=== PATIENT | male | born 1960 | race Caucasian/White ===

== ENCOUNTER → 2018-09-21 | Outpatient (CLI) | payer OTHER ==
[~2018-09-21] MED LIST: AMOCLA875 PO; AMOX500 PO; ASPI325 PO; B/P MED; Bactrim Ds Tab1 EACH PO; CEPH500 PO; CIPR500 PO; CLIN300 PO; CYCL10 PO; Furosemide20 MG PO; GABA300 PO; HYDACE5 PO; HYDCHL25 PO; HYDR1TAB94 PO; IBUP600 PO; INS70/30I SC; INS70/30PN SC; INSN100I SC; INSR10I SC; INSR10I SS; INSUASPI; LEVEMIR FL100 UNIT/1 SQ; LISI20 PO; METF500C PO; NAPR500 PO; NORT25 PO; Norco 5-325 Ta1 EACH PO; OLME20 PO; OMEP20ER PO; ONDA4ODT MM; OXYACE5T PO; POTCHL10ER PO; SACC250C; SIMV10 PO; SIMV40 PO; SULTRIDS PO; Tylenol325 MG PO
== END | disposition home or self-care (01) ==
LOC: LAB 17:32 → LAB SHORT 17:32
DX: E11.42 Type 2 diabetes mellitus with diabetic polyneuropathy (principal); E11.621 Type 2 diabetes mellitus with foot ulcer; L97.522 Non-pressure chronic ulcer of other part of left foot with fat layer exposed; L03.032 Cellulitis of left toe; M86.172 Other acute osteomyelitis, left ankle and foot; R20.0 Anesthesia of skin
CPT/HCPCS: 87070; 87077; 87147; 87186; 87205; 88305; 88311

== ENCOUNTER 2019-05-20 02:43 | Day surgery (SDC) | payer OTHER ==
[~2019-05-20 02:43] MED LIST changes: +CLON.1 PO; +CYAN500 PO
== END 2019-05-20 15:35 | disposition home or self-care (01) ==
LOC: ATC 02:43
DX: E11.621 Type 2 diabetes mellitus with foot ulcer (principal); L08.9 Local infection of the skin and subcutaneous tissue, unspecified; I10 Essential (primary) hypertension; E11.40 Type 2 diabetes mellitus with diabetic neuropathy, unspecified; Z79.4 Long term (current) use of insulin; Z79.899 Other long term (current) drug therapy; Z79.2 Long term (current) use of antibiotics
CPT/HCPCS: 96365; 96366; J3370; J7050

== ENCOUNTER 2019-05-21 11:11 | Inpatient (IN) | payer OTHER ==
[~2019-05-21] VITALS: Ht 190.5 cm; Wt 136.1 kg
[2019-05-21 12:21] LABS: BASOPHILS ABSOLUTE AUTO 0.05 K/mm3 (0.00-0.23); BASOPHILS PERCENT AUTO 1 % (0-2); EOSINOPHILS ABSOLUTE AUTO 0.36 K/mm3 (0.00-0.68); EOSINOPHILS PERCENT AUTO 4 % (0-6); Hematocrit 32.8 % (37.0-53.0); Hemoglobin 10.8 g/dL (13.5-17.5); IMMATURE GRAN ABSOLUTE AUTO 0.04 K/mm3 (0.00-0.10); IMMATURE GRAN PERCENT AUTO 0 % (0-1); LYMPHOCYTES ABSOLUTE AUTO 1.55 K/mm3 (0.84-5.20); LYMPHOCYTES PERCENT AUTO 17 % (21-46); MONOCYTES ABSOLUTE AUTO 0.81 K/mm3 (0.16-1.47); MONOCYTES PERCENT AUTO 9 % (4-13); Mean Corpuscular HGB 29.1 pg (26.0-34.0); Mean Corpuscular HGB Conc 32.9 g/dL (31.5-36.5); Mean Corpuscular Volume 88 fL (80-100); Mean Platelet Volume 10.3 fL (9.1-12.4); NEUTROPHILS ABSOLUTE AUTO 6.31 K/mm3 (1.96-9.15); NEUTROPHILS PERCENT AUTO 69 % (41-73); Platelet Count 369 K/mm3 (150-400); RDW Coefficient Variation 12.5 % (11.7-14.2); RDW Standard Deviation 40.6 fL (35.1-46.3); Red Blood Cell Count 3.71 M/mm3 (4.30-5.90); White Blood Cell Count 9.12 K/mm3 (4.00-11.30)
[2019-05-21 12:38] LABS: International Normalized Ratio 0.99; Prothrombin Time Results 10.6 Sec (9.7-11.5)
[2019-05-21 12:39] LABS: Alanine Aminotransfer (ALT/SGP 13 U/L (12-78); Albumin, Blood 2.7 g/dL (3.4-5.0); Albumin/Globulin Ratio 0.7 (0.8-1.8); Alk Phos 91 U/L (50-136); Anion Gap 5 mmol/L (6-16); Aspartate Aminotrans (AST/SGOT 8 U/L (12-37); Bilirubin, Total 0.4 mg/dL (0.1-1.0); Blood Urea Nitrogen 28 mg/dL (8-24); Bun/Creatinine Ratio 27.5 (12.0-20.0); CO2, Blood 28 mmol/L (21-32); Calcium, Blood 9.3 mg/dL (8.5-10.1); Chloride, Blood 106 mmol/L (98-108); Creatinine, Blood 1.02 mg/dL (0.60-1.20); Globulin, Blood 3.9 g/dL (2.2-4.0); Glomerular Filtration Rate >60 (60-); Glucose, Blood 208 mg/dL (70-99); Potassium, Blood 3.9 mmol/L (3.5-5.5); Sodium, Blood 139 mmol/L (136-145); Total Protein, Blood 6.6 g/dL (6.4-8.2)
--- NOTE | 2019-05-21 16:42 | NUR ---
05/21/19 1642 Viviane Silver PT ON SCHEDULED ANTIBIOTICS, PAS STOCKING NOT USED ON LEFT CALF PER DOC, ANESTHESIA OK'D
--- NOTE | 2019-05-21 19:58 | NUR ---
SHIFT SUMMARY PT A&OX4, VSS, S/P R FOOT I&D W/WOUND VAC. DENIES PAIN. DENIES N&V. MARCELL PO. VOIDING WELL, USES URINAL. FAMILY AT BEDSIDE. REPORT GIVEN TO YONG COOK.
[2019-05-22 04:12] LABS: BASOPHILS ABSOLUTE AUTO 0.03 K/mm3 (0.00-0.23); BASOPHILS PERCENT AUTO 0 % (0-2); EOSINOPHILS ABSOLUTE AUTO 0.01 K/mm3 (0.00-0.68); EOSINOPHILS PERCENT AUTO 0 % (0-6); Hematocrit 32.7 % (37.0-53.0); Hemoglobin 10.4 g/dL (13.5-17.5); IMMATURE GRAN ABSOLUTE AUTO 0.05 K/mm3 (0.00-0.10); IMMATURE GRAN PERCENT AUTO 1 % (0-1); LYMPHOCYTES ABSOLUTE AUTO 0.91 K/mm3 (0.84-5.20); LYMPHOCYTES PERCENT AUTO 12 % (21-46); MONOCYTES PERCENT AUTO 8 % (4-13); Mean Corpuscular HGB 28.7 pg (26.0-34.0); Mean Corpuscular HGB Conc 31.8 g/dL (31.5-36.5); Mean Corpuscular Volume 90 fL (80-100); Mean Platelet Volume 10.4 fL (9.1-12.4); NEUTROPHILS ABSOLUTE AUTO 6.09 K/mm3 (1.96-9.15); NEUTROPHILS PERCENT AUTO 79 % (41-73); Platelet Count 359 K/mm3 (150-400); RDW Coefficient Variation 12.5 % (11.7-14.2); RDW Standard Deviation 41.5 fL (35.1-46.3); Red Blood Cell Count 3.62 M/mm3 (4.30-5.90); White Blood Cell Count 7.69 K/mm3 (4.00-11.30)
[2019-05-22 04:27] LABS: Anion Gap 1 mmol/L (6-16); Blood Urea Nitrogen 29 mg/dL (8-24); Bun/Creatinine Ratio 25.7 (12.0-20.0); CO2, Blood 32 mmol/L (21-32); Calcium, Blood 8.8 mg/dL (8.5-10.1); Chloride, Blood 108 mmol/L (98-108); Creatinine, Blood 1.13 mg/dL (0.60-1.20); Glomerular Filtration Rate >60 (60-); Glucose, Blood 295 mg/dL (70-99); Potassium, Blood 4.6 mmol/L (3.5-5.5); Sodium, Blood 141 mmol/L (136-145)
--- NOTE | 2019-05-22 07:45 | NUR ---
SHIFT SUMMARY: PT POD #1 FOR I&D TO RLE. MARINA WRAP CDI WITH WOUND VAC IN PLACE. DRAINING SS FLUID. PT NWB TO RLE. PT DENIES PAIN T/O SHIFT. FLUIDS INFUSING THROUGHOUT NIGHT. PT MARCELL PO AND DENIES N/V.
--- NOTE | 2019-05-22 12:10 | NUR ---
pt in bed eating lunch worked with physical therapy earlier stated his toilet was having problems will call someone to look at it for him
--- NOTE | 2019-05-22 12:25 | NUR ---
SHIFT SUMMARY PT IS A/O X 4 AND HAS NO C/O PAIN. WOUND VAC REMAINS C.D.I. TO RIGHT FOOT. PT WORKED WITH THE PT IN HIS ROOM AND HE WAS ABLE TO WALK WITH THE FWW AND X 1 ASSIST WITH HEEL TOUCH WEIGHT BEARING STATUS. PT REPORTS THAT HE LIVES ON THE SECOND FLOOR OF HIS [place] AND WILL NEED TO WORK WITH THERAPY TO REGAIN HIS STRENGTH TO BE ABLE TO GET INTO HIS HOME UPON DC. IV ABO INFUSED WITH NO ISSUE OBSERVED. CBGS COVERED WITH SLIDING SCALE ORDERED, PT HAS NO S/S OF HYPER/HYPO GLYCEMIA. PT IS ABLE TO MAKE HIS NEEDS KNOWN AND CALLS FOR HELP APPROPRIATELY WHEN NEEDED. CALL LIGHT IS IN REACH. REPORT GIVEN TO ONCOMING NURSE.
--- NOTE | 2019-05-22 15:23 | NUR ---
pt awake voided stated at home he sleeps in small bursts night and day also stated at home he only take his meds once a day clonidine 0.3 mg is ordered tid
--- NOTE | 2019-05-22 16:05 | NUR ---
OOB WITH FWW TO BATHROOM PWB ON HEEL TO HAVE BM BACK TO BED MEDS GIVEN SCHED
--- NOTE | 2019-05-22 17:45 | NUR ---
pt eating dinner meds given as sched
--- NOTE | 2019-05-23 06:39 | NUR ---
POD 2 S/P I&D OF R FOOT. PT VSS T/O NIGHT. PT DENIED PAIN. WOUND VAC INTACT SRNG SMALL AMT SS DRNG; GOOD SEAL AND SX MAINTAINED T/O NIGHT. PT UP OOB W/FWW+SBA, MAINTAINING WB PRECAUTIONS. PT MARCELL REG PO, NO C/O N/V. PT USING CALL LIGHT FOR ASSISTANCE, WILL CONT TO MONITOR UNTIL REP GIVEN TO ONCOMING RN.
--- NOTE | 2019-05-23 07:30 | NUR ---
ASSUMED CARE: PT RESTING IN BED, RIGHT FOOT ELEVATED, WRAPPED IN MARINA WRAP WITH WOUND VAC DRAINING. SCANT DRAINAGE NOTED IN WOUND VAC. DENIES PAINS OR OTHER CONCERNS AT THIS TIME.
--- NOTE | 2019-05-23 18:59 | NUR ---
SHIFT SUMMARY: PT UP IN CHAIR A FEW TIMES THIS SHIFT. DENIED NEEDS OR CONCERNS. PLAN FOR DC TO SNF WHEN SS AVAILABLE. NO FURTHER INPUT PER PODIATRY AT THIS TIME.
--- NOTE | 2019-05-24 04:56 | NUR ---
POD 3 S/P I&D OF R FOOT. PT DENIED PAIN T/O NIGHT. WOUND VAC INTACT [facility]. PT UP W/FWW+SBA, IS MAINTAINING HEEL TOUCH WBS. IV ABC CONT PER ORDERS. PLAN TO D/C TO SNF. PT USING CALL LIGHT FOR ASSISTANCE, WILL CONT TO MONITOR UNTIL REP GIVEN TO ONCOMING RN.
--- NOTE | 2019-05-24 16:30 | NUR ---
ATTEMPT TO CALL REPORT TO LUCIA
--- NOTE | 2019-05-24 17:04 | NUR ---
ATTEMPT TO CALL REPORT TO LUCIA. PT ESCORTED OUT VIA W/C W/ TRANSPORT.
== END 2019-05-24 17:04 | disposition home or self-care (01) | DRG 623 ==
LOC: ER 11:11 → SURS 14:46
PROVIDERS: Emergency Medicine; Podiatrist Foot & Ankle Surgery; ADMIT Internal Medicine
PROC: 0KBV0ZZ Excision of Right Foot Muscle, Open Approach (ICD-10-PCS; principal; 2019-05-21 15:00)
DX: E11.69 Type 2 diabetes mellitus with other specified complication (principal); M86.171 Other acute osteomyelitis, right ankle and foot; E11.52 Type 2 diabetes mellitus with diabetic peripheral angiopathy with gangrene; I96 Gangrene, not elsewhere classified; E11.621 Type 2 diabetes mellitus with foot ulcer; L97.513 Non-pressure chronic ulcer of other part of right foot with necrosis of muscle; E11.21 Type 2 diabetes mellitus with diabetic nephropathy; M54.9 Dorsalgia, unspecified; Z89.429 Acquired absence of other toe(s), unspecified side
CPT/HCPCS: 36415; 73620; 80048; 80053; 82947; 83036; 83605; 85025; 85610; 85730; 87040; 87071; 87075; 87205; 88305; 93005; 93010; 96374; 97110; 97116; 97162; 99285-25; A9270-GY; J0690; J1100; J1170; J1650; J2250; J2405; J2704; J2765; J3010; J7030; J7050; J7120

== ENCOUNTER 2019-05-22 01:39 | Day surgery (SDC) | payer OTHER | END 2019-05-22 22:38 | disposition home or self-care (01) | LOC: ATC 01:39 | DX: E11.621 Type 2 diabetes mellitus with foot ulcer (principal); L97.519 Non-pressure chronic ulcer of other part of right foot with unspecified severity; B95.61 Methicillin susceptible Staphylococcus aureus infection as the cause of diseases classified elsewhere; E11.40 Type 2 diabetes mellitus with diabetic neuropathy, unspecified; I10 Essential (primary) hypertension; Z79.4 Long term (current) use of insulin; Z79.899 Other long term (current) drug therapy; Z89.421 Acquired absence of other right toe(s) ==

== ENCOUNTER 2019-05-23 00:40 | Day surgery (SDC) | payer OTHER | END 2019-05-23 22:44 | disposition home or self-care (01) | LOC: ATC 00:40 | DX: E11.621 Type 2 diabetes mellitus with foot ulcer (principal); L97.519 Non-pressure chronic ulcer of other part of right foot with unspecified severity; B95.61 Methicillin susceptible Staphylococcus aureus infection as the cause of diseases classified elsewhere; E11.40 Type 2 diabetes mellitus with diabetic neuropathy, unspecified; I10 Essential (primary) hypertension; Z79.4 Long term (current) use of insulin; Z79.899 Other long term (current) drug therapy; Z89.421 Acquired absence of other right toe(s) ==

== ENCOUNTER 2019-05-24 00:14 | Day surgery (SDC) | payer OTHER | END 2019-05-24 23:17 | disposition home or self-care (01) | LOC: ATC 00:14 | DX: E11.621 Type 2 diabetes mellitus with foot ulcer (principal); L97.419 Non-pressure chronic ulcer of right heel and midfoot with unspecified severity; I10 Essential (primary) hypertension; E11.40 Type 2 diabetes mellitus with diabetic neuropathy, unspecified; B95.62 Methicillin resistant Staphylococcus aureus infection as the cause of diseases classified elsewhere; Z79.4 Long term (current) use of insulin; Z79.899 Other long term (current) drug therapy ==

== ENCOUNTER → 2019-06-16 | Outpatient (CLI) | payer OTHER ==
[2019-06-16 12:17] LABS: Hematocrit 36.8 % (37.0-53.0); Hemoglobin 11.9 g/dL (13.5-17.5); Mean Corpuscular HGB 28.7 pg (26.0-34.0); Mean Corpuscular HGB Conc 32.3 g/dL (31.5-36.5); Mean Corpuscular Volume 89 fL (80-100); Platelet Count 339 K/mm3 (150-400); RDW Coefficient Variation 13.7 % (11.7-14.2); Red Blood Cell Count 4.15 M/mm3 (4.30-5.90); White Blood Cell Count 9.21 K/mm3 (4.00-11.30)
[2019-06-16 12:28] LABS: Alanine Aminotransfer (ALT/SGP 13 U/L (12-78); Albumin, Blood 3.4 g/dL (3.4-5.0); Albumin/Globulin Ratio 0.8 (0.8-1.8); Alk Phos 115 U/L (50-136); Anion Gap 5 mmol/L (6-16); Aspartate Aminotrans (AST/SGOT 11 U/L (12-37); Bilirubin, Total 0.2 mg/dL (0.1-1.0); Blood Urea Nitrogen 22 mg/dL (8-24); Bun/Creatinine Ratio 22.8 (12.0-20.0); CO2, Blood 29 mmol/L (21-32); Calcium, Blood 9.3 mg/dL (8.5-10.1); Chloride, Blood 107 mmol/L (98-108); Creatinine, Blood 0.97 mg/dL (0.60-1.20); Globulin, Blood 4.1 g/dL (2.2-4.0); Glomerular Filtration Rate >60 (60-); Glucose, Blood 151 mg/dL (70-99); Sodium, Blood 141 mmol/L (136-145); Total Protein, Blood 7.5 g/dL (6.4-8.2)
== END | disposition home or self-care (01) ==
LOC: LAB SHORT 12:01 → LAB 12:01
PROVIDERS: Internal Medicine Nephrology
DX: E11.40 Type 2 diabetes mellitus with diabetic neuropathy, unspecified (principal); M86.071 Acute hematogenous osteomyelitis, right ankle and foot; B95.62 Methicillin resistant Staphylococcus aureus infection as the cause of diseases classified elsewhere; I10 Essential (primary) hypertension
CPT/HCPCS: 80053; 85027; 85651; 86140

== ENCOUNTER 2019-06-22 00:16 | Day surgery (SDC) | payer OTHER | END 2019-06-22 22:53 | disposition home or self-care (01) | LOC: WOUND 00:16 | DX: T81.89XA Other complications of procedures, not elsewhere classified, initial encounter (principal); E11.621 Type 2 diabetes mellitus with foot ulcer; L97.516 Non-pressure chronic ulcer of other part of right foot with bone involvement without evidence of necrosis; E11.51 Type 2 diabetes mellitus with diabetic peripheral angiopathy without gangrene; I10 Essential (primary) hypertension; E11.40 Type 2 diabetes mellitus with diabetic neuropathy, unspecified; F17.210 Nicotine dependence, cigarettes, uncomplicated; Z89.431 Acquired absence of right foot; Y83.8 Other surgical procedures as the cause of abnormal reaction of the patient, or of later complication, without mention of misadventure at the time of the procedure | CPT/HCPCS: 87071; 87075; 87076; 87077; 87185; 87186; 87205; 88305; 88311; G0463 ==

== ENCOUNTER 2019-07-01 00:59 | Day surgery (SDC) | payer OTHER ==
[~2019-07-01 00:59] MED LIST changes: -CLON.1 PO; -Furosemide20 MG PO; -METF500C PO; -POTCHL10ER PO
== END 2019-07-01 22:46 | disposition home or self-care (01) ==
LOC: WOUND 00:59
DX: E11.621 Type 2 diabetes mellitus with foot ulcer (principal); L97.513 Non-pressure chronic ulcer of other part of right foot with necrosis of muscle; I10 Essential (primary) hypertension; E11.51 Type 2 diabetes mellitus with diabetic peripheral angiopathy without gangrene; E11.40 Type 2 diabetes mellitus with diabetic neuropathy, unspecified; Z79.4 Long term (current) use of insulin; Z79.899 Other long term (current) drug therapy; Z86.73 Personal history of transient ischemic attack (TIA), and cerebral infarction without residual deficits; Z89.431 Acquired absence of right foot
CPT/HCPCS: 87071; 87075; 87076; 87185; 87205; 88305; 88311

== ENCOUNTER 2019-07-05 14:54 | Inpatient (IN) | payer OTHER ==
[~2019-07-05] VITALS: Ht 190.5 cm; Wt 143.5 kg
[2019-07-05 15:41] LABS: BASOPHILS ABSOLUTE AUTO 0.04 K/mm3 (0.00-0.23); BASOPHILS PERCENT AUTO 0 % (0-2); EOSINOPHILS ABSOLUTE AUTO 0.19 K/mm3 (0.00-0.68); EOSINOPHILS PERCENT AUTO 2 % (0-6); Hematocrit 31.1 % (37.0-53.0); Hemoglobin 9.9 g/dL (13.5-17.5); IMMATURE GRAN ABSOLUTE AUTO 0.04 K/mm3 (0.00-0.10); IMMATURE GRAN PERCENT AUTO 0 % (0-1); LYMPHOCYTES ABSOLUTE AUTO 1.29 K/mm3 (0.84-5.20); LYMPHOCYTES PERCENT AUTO 12 % (21-46); MONOCYTES ABSOLUTE AUTO 1.11 K/mm3 (0.16-1.47); MONOCYTES PERCENT AUTO 10 % (4-13); Mean Corpuscular HGB 28.2 pg (26.0-34.0); Mean Corpuscular HGB Conc 31.8 g/dL (31.5-36.5); Mean Corpuscular Volume 89 fL (80-100); Mean Platelet Volume 10.4 fL (9.1-12.4); NEUTROPHILS ABSOLUTE AUTO 8.08 K/mm3 (1.96-9.15); NEUTROPHILS PERCENT AUTO 75 % (41-73); Platelet Count 372 K/mm3 (150-400); RDW Coefficient Variation 13.5 % (11.7-14.2); RDW Standard Deviation 44.1 fL (35.1-46.3); Red Blood Cell Count 3.51 M/mm3 (4.30-5.90); White Blood Cell Count 10.75 K/mm3 (4.00-11.30)
[2019-07-05 16:04] LABS: Alanine Aminotransfer (ALT/SGP 11 U/L (12-78); Albumin, Blood 2.9 g/dL (3.4-5.0); Albumin/Globulin Ratio 0.7 (0.8-1.8); Alk Phos 107 U/L (50-136); Anion Gap 5 mmol/L (6-16); Aspartate Aminotrans (AST/SGOT 7 U/L (12-37); Bilirubin, Total 0.2 mg/dL (0.1-1.0); Blood Urea Nitrogen 24 mg/dL (8-24); Bun/Creatinine Ratio 20.9 (12.0-20.0); CO2, Blood 28 mmol/L (21-32); Calcium, Blood 8.8 mg/dL (8.5-10.1); Chloride, Blood 107 mmol/L (98-108); Creatinine, Blood 1.15 mg/dL (0.60-1.20); Globulin, Blood 3.9 g/dL (2.2-4.0); Glomerular Filtration Rate >60 (60-); Glucose, Blood 116 mg/dL (70-99); Potassium, Blood 4.3 mmol/L (3.5-5.5); Sodium, Blood 140 mmol/L (136-145); Total Protein, Blood 6.8 g/dL (6.4-8.2)
[2019-07-05] MEDS ORDERED: BASAGLAR K100 UNIT/2 SC (17:29)
[2019-07-05] MEDS ORDERED: Furosemide20 MG PO (17:29)
[2019-07-05] MEDS ORDERED: CLON.3 PO (17:29)
[2019-07-05] MEDS ORDERED: LISI20 PO (17:30)
[2019-07-05] MEDS ORDERED: NOVOLOG FL100 UNIT/1 SC (18:01)
[2019-07-05] MEDS ORDERED: POTCHL10ER PO (18:04)
[2019-07-05] MEDS ORDERED: Metformin HCl1000 MG PO (18:04)
[2019-07-05] MEDS ORDERED: Aspir 8181 MG PO (18:05)
--- NOTE | 2019-07-05 18:52 | NUR ---
PT TO ROOM 210 FROM ER. PT A/O. PT IN BED. PT REPORTS AWARE OF CALL LIGHT AND PHONE. GIVING REPORT TO TAMI COOK.
[2019-07-05] MEDS ORDERED: GLUC500 PO (20:08)
[2019-07-06 04:48] LABS: BASOPHILS ABSOLUTE AUTO 0.04 K/mm3 (0.00-0.23); BASOPHILS PERCENT AUTO 1 % (0-2); EOSINOPHILS ABSOLUTE AUTO 0.25 K/mm3 (0.00-0.68); EOSINOPHILS PERCENT AUTO 3 % (0-6); Hematocrit 28.2 % (37.0-53.0); IMMATURE GRAN ABSOLUTE AUTO 0.03 K/mm3 (0.00-0.10); IMMATURE GRAN PERCENT AUTO 0 % (0-1); LYMPHOCYTES ABSOLUTE AUTO 1.53 K/mm3 (0.84-5.20); LYMPHOCYTES PERCENT AUTO 20 % (21-46); MONOCYTES ABSOLUTE AUTO 0.83 K/mm3 (0.16-1.47); MONOCYTES PERCENT AUTO 11 % (4-13); Mean Corpuscular HGB 28.2 pg (26.0-34.0); Mean Corpuscular HGB Conc 31.9 g/dL (31.5-36.5); Mean Corpuscular Volume 88 fL (80-100); Mean Platelet Volume 10.3 fL (9.1-12.4); NEUTROPHILS ABSOLUTE AUTO 5.01 K/mm3 (1.96-9.15); NEUTROPHILS PERCENT AUTO 65 % (41-73); Platelet Count 282 K/mm3 (150-400); RDW Coefficient Variation 13.5 % (11.7-14.2); RDW Standard Deviation 44.1 fL (35.1-46.3); Red Blood Cell Count 3.19 M/mm3 (4.30-5.90); White Blood Cell Count 7.69 K/mm3 (4.00-11.30)
[2019-07-06 05:07] LABS: Anion Gap 5 mmol/L (6-16); Blood Urea Nitrogen 21 mg/dL (8-24); CO2, Blood 29 mmol/L (21-32); Calcium, Blood 8.6 mg/dL (8.5-10.1); Chloride, Blood 107 mmol/L (98-108); Creatinine, Blood 1.05 mg/dL (0.60-1.20); Glomerular Filtration Rate >60 (60-); Glucose, Blood 147 mg/dL (70-99); Sodium, Blood 141 mmol/L (136-145)
--- NOTE | 2019-07-06 05:33 | NUR ---
SHIFT SUMMARY: JONATHAN IS A&O X4. HE IS NWB TO THE RLE WHICH HAS AN OPEN WOUND AND IS BANDAGED WITH A NONADHESIVE PAD, KERLIX AND MARINA WRAP. VSS. NO ACUTE EVENTS OVERNIGHT. HE RESTED WITH HIS EYES CLOSED AND EVEN, UNLABORED RESPIRATONS FOR THE BETTER PART OF THE NIGHT. HE WAS MADE NPO AT MIDNIGHT, TOLERATED PO INTAKE WELL UNTIL THEN, DENIES ANY N/V. HE IS USING THE URINAL WITHOUT DIFFICULTY. HE IS ABLE TO MAKE HIS NEEDS KNOWN. PICC TO RUE PATENT. HE IS PLEASANT AND COOPERATIVE WITH CARE. HE IS LYING IN BED WITH HIS CALL LIGHT IN REACH. WILL REPORT TO DAY SHIFT RN.
--- NOTE | 2019-07-06 09:32 | NUR ---
PT TO DAY SURGERY VIA JETT
--- NOTE | 2019-07-06 09:37 | NUR ---
INTO SDS WITH RN. ADMISSION TO UNIT STARTED
--- NOTE | 2019-07-06 11:28 | NUR ---
UP TO BATHROOM PATIENT REPORTS URINATED AND HAD A BOWELL MOVEMENT.
--- NOTE | 2019-07-06 13:45 | NUR ---
POST OP PT ARRIVES POST OP. ORIENTED, PLEASANT. WOUND VAC IN PLACE. ELEVATED ON PILLOW.
[2019-07-07 05:00] LABS: BASOPHILS ABSOLUTE AUTO 0.02 K/mm3 (0.00-0.23); BASOPHILS PERCENT AUTO 0 % (0-2); EOSINOPHILS PERCENT AUTO 3 % (0-6); Hematocrit 27.3 % (37.0-53.0); Hemoglobin 8.7 g/dL (13.5-17.5); IMMATURE GRAN ABSOLUTE AUTO 0.03 K/mm3 (0.00-0.10); IMMATURE GRAN PERCENT AUTO 0 % (0-1); LYMPHOCYTES ABSOLUTE AUTO 1.38 K/mm3 (0.84-5.20); LYMPHOCYTES PERCENT AUTO 18 % (21-46); MONOCYTES ABSOLUTE AUTO 0.78 K/mm3 (0.16-1.47); MONOCYTES PERCENT AUTO 10 % (4-13); Mean Corpuscular HGB 28.2 pg (26.0-34.0); Mean Corpuscular HGB Conc 31.9 g/dL (31.5-36.5); Mean Corpuscular Volume 89 fL (80-100); Mean Platelet Volume 10.3 fL (9.1-12.4); NEUTROPHILS ABSOLUTE AUTO 5.23 K/mm3 (1.96-9.15); NEUTROPHILS PERCENT AUTO 68 % (41-73); Platelet Count 271 K/mm3 (150-400); RDW Coefficient Variation 13.3 % (11.7-14.2); Red Blood Cell Count 3.08 M/mm3 (4.30-5.90); White Blood Cell Count 7.64 K/mm3 (4.00-11.30)
[2019-07-07 05:17] LABS: Anion Gap 3 mmol/L (6-16); Blood Urea Nitrogen 21 mg/dL (8-24); Bun/Creatinine Ratio 18.1 (12.0-20.0); CO2, Blood 31 mmol/L (21-32); Calcium, Blood 8.5 mg/dL (8.5-10.1); Chloride, Blood 107 mmol/L (98-108); Creatinine, Blood 1.16 mg/dL (0.60-1.20); Glomerular Filtration Rate >60 (60-); Glucose, Blood 141 mg/dL (70-99); Potassium, Blood 4.4 mmol/L (3.5-5.5); Sodium, Blood 141 mmol/L (136-145)
--- NOTE | 2019-07-07 06:28 | NUR ---
SHIFT SUMMARY S/P I/D OF RIGHT FOOT, DRESSING APPEARS C/D/I. WOUND VAC IN PLACE AND DRAINING. RLE ELEVATED. IS A/OX4, ABLE TO EXPRESS NEEDS AND USE CALL LIGHT APPROPRIATELY. PT WAS ABLE TO REST T/O MOST OF SHIFT; WHICH WAS HIS MAIN CONCERN TONIGHT. DENIED NEED FOR PAIN MEDICATION. PLAN FOR POSSIBLE REVASCULARIZATION PROCEDURE TODAY. IS CURRENTLY RESTING IN BED WITH CALL LIGHT IN REACH. WILL CONT TO MONITOR AND GIVE REPORT TO ONCOMING RN.
--- NOTE | 2019-07-07 12:05 | NUR ---
1145 TO [facility]
--- NOTE | 2019-07-07 13:47 | NUR ---
Received the pt from the heart center, right side groin access site noted and no bleeding, no bruising, no hematoma noted. Distal spo2 99% on the left foot, second digit. Pt c/o back pain and was assisted to left side lying position with pillows for comfort and support. [place] given per orders. Vital signs are stable.
--- NOTE | 2019-07-07 14:23 | NUR ---
PT APPEARS TO BE SLEEPING, NADN
--- NOTE | 2019-07-07 17:38 | NUR ---
SHIFT NOTES PT ARRIVED FROM [employer] [facility] TODAY POST REVASCULARIZATION, WITH LT FEMORAL ACCESS. ANGIOSEAL INPLACE, NO ACTIVE BLEEDING NOTED TO LT GROIN. STRONG PEDAL PULSES NOTED TO FEET BILAT. PT REPORTS POOR PAIN CONTROL WITH MEDICATIONS BUT IS SOUNDLY SLEEPING EACH TIME THIS RN ENTERS ROOM. PT REPOSITIONED FOR COMFORT. PT RESTING WELL DENIES FURTHER NEEDS. VSS SINCE ASSUMING PT CARE,SOME HTN WAS NOTED FROM PREVIOUS RN WHICH HAS NOT BEEN PRESENT SINCE ASSUMING PT CARE
--- NOTE | 2019-07-07 19:55 | NUR ---
Assumed care Pt presents in bed, lying flat, VSS, breathing even and unlabored on RA. Pt is fully alert and oriented. Pt is S/p revascularization access through L groin dressing with angioseal. site wnl, soft nontender, no hematoma present. BLE with strong pulses, denies pain. no acute concern to note. see shift assessment for detailed systems assessment. 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 Right foot with all toes amputated, left foot with great toe amputated. wound vac in place on right foot, dressing intact. Will continue to monitor.
--- NOTE | 2019-07-08 06:17 | NUR ---
Shift Summary Pt with no events overnight. Left fem site remains soft and non tender, angio seal intact. pulses strong BLE. RLE warm, pink. Discoloration present on BLE on shins. Pt voids in urinal independantly at bedside. pt has remained bedrest per orders. No acute changes overnight. No acute concerns to note. Pt currently sleeping. VSS. Will continue to monitor until day RN assumes care.
[2019-07-08] MEDS ORDERED: ACET325 PO (13:43)
[2019-07-08] MEDS ORDERED: Unasyn 3 gm3 GM IV (13:43)
[2019-07-08] MEDS ORDERED: TRAM50 PO (13:44)
[2019-07-08] MEDS ORDERED: Humalog100 UNIT/1 SC (13:44)
[2019-07-08] MEDS ORDERED: LACT PO (13:45)
--- NOTE | 2019-07-08 14:15 | NUR ---
DISCHARGE PT ALERT AND ORIENTED. VS STABLE. DR. DOMINIQUE IN WITH PLANS FOR DC TO SNF. PT TAKEN BY TRANSPORT AND REPORT CALLED TO LUCIA.
== END 2019-07-08 14:15 | DRG 253 ==
LOC: ER 14:54 → SURS 14:55 → PCU 07-07 12:37 → SURS 07-07 12:38 → PCU 07-07 13:19
PROVIDERS: Nurse Practitioner Acute Care; Physician Assistant; ADMIT Internal Medicine
PROC: 0QBN0ZZ Excision of Right Metatarsal, Open Approach (ICD-10-PCS; 2019-07-06)
PROC: 047M3ZZ Dilation of Right Popliteal Artery, Percutaneous Approach (ICD-10-PCS; principal; 2019-07-07)
PROC: 047R3ZZ Dilation of Right Posterior Tibial Artery, Percutaneous Approach (ICD-10-PCS; 2019-07-07)
PROC: 047T3ZZ Dilation of Right Peroneal Artery, Percutaneous Approach (ICD-10-PCS; 2019-07-07)
DX: E11.52 Type 2 diabetes mellitus with diabetic peripheral angiopathy with gangrene (principal); M86.171 Other acute osteomyelitis, right ankle and foot; Z16.21 Resistance to vancomycin; I96 Gangrene, not elsewhere classified; E11.69 Type 2 diabetes mellitus with other specified complication; B96.6 Bacteroides fragilis [B. fragilis] as the cause of diseases classified elsewhere; B95.2 Enterococcus as the cause of diseases classified elsewhere; E11.621 Type 2 diabetes mellitus with foot ulcer; L97.519 Non-pressure chronic ulcer of other part of right foot with unspecified severity; I70.203 Unspecified atherosclerosis of native arteries of extremities, bilateral legs; E11.40 Type 2 diabetes mellitus with diabetic neuropathy, unspecified; I10 Essential (primary) hypertension; M54.9 Dorsalgia, unspecified; G89.29 Other chronic pain; F17.210 Nicotine dependence, cigarettes, uncomplicated; E66.01 Morbid (severe) obesity due to excess calories; Z68.39 Body mass index [BMI] 39.0-39.9, adult; Z86.73 Personal history of transient ischemic attack (TIA), and cerebral infarction without residual deficits; Z79.4 Long term (current) use of insulin; Z79.899 Other long term (current) drug therapy
CPT/HCPCS: 37228; 37232; 75625; 75716; 75774; 80048; 80053; 82947; 85025; 85347; 85651; 86140; 87071; 87075; 87076; 87077; 87185; 87186; 87205; 93005; 93010; 93971; 96365; 96374; 96375; 96376; 97110; 97162; 97166; 97530; 97535; 99152; 99153; 99285-25; A9270-GY; C1725; C1760; C1769; C1887; C1894; G0378; J0295; J0360; J0696; J1170; J1644; J1885; J2250; J2405; J2704; J2765; J3010; J7030; J7120; Q9967

== ENCOUNTER 2019-08-09 00:17 | Day surgery (SDC) | payer OTHER ==
[~2019-08-09 00:17] MED LIST changes: +ACET325 PO; +Aspir 8181 MG PO; +BASAGLAR K100 UNIT/2 SC; +CLON.3 PO; +Furosemide20 MG PO; +GLUC500 PO; +Humalog100 UNIT/1 SC; +LACT PO; +Metformin HCl1000 MG PO; +NOVOLOG FL100 UNIT/1 SC; +POTCHL10ER PO; +TRAM50 PO; +Unasyn 3 gm3 GM IV
== END 2019-08-09 22:59 | disposition home or self-care (01) ==
LOC: WOUND
DX: E11.621 Type 2 diabetes mellitus with foot ulcer (principal); E11.69 Type 2 diabetes mellitus with other specified complication; M86.671 Other chronic osteomyelitis, right ankle and foot; L97.515 Non-pressure chronic ulcer of other part of right foot with muscle involvement without evidence of necrosis; E11.40 Type 2 diabetes mellitus with diabetic neuropathy, unspecified; I10 Essential (primary) hypertension; F17.210 Nicotine dependence, cigarettes, uncomplicated; Z79.899 Other long term (current) drug therapy; Z79.84 Long term (current) use of oral hypoglycemic drugs; Z79.82 Long term (current) use of aspirin; Z89.431 Acquired absence of right foot
CPT/HCPCS: G0463

== ENCOUNTER 2019-08-16 00:30 | Day surgery (SDC) | payer OTHER | END 2019-08-16 22:47 | disposition home or self-care (01) | LOC: WOUND | DX: E11.621 Type 2 diabetes mellitus with foot ulcer (principal); E11.51 Type 2 diabetes mellitus with diabetic peripheral angiopathy without gangrene; E11.40 Type 2 diabetes mellitus with diabetic neuropathy, unspecified; I10 Essential (primary) hypertension; M86.671 Other chronic osteomyelitis, right ankle and foot; L97.412 Non-pressure chronic ulcer of right heel and midfoot with fat layer exposed; Z79.899 Other long term (current) drug therapy; Z79.4 Long term (current) use of insulin ==

== ENCOUNTER 2019-08-23 01:15 | Day surgery (SDC) | payer OTHER | END 2019-08-23 22:48 | disposition home or self-care (01) | LOC: WOUND | DX: E11.621 Type 2 diabetes mellitus with foot ulcer (principal); L97.512 Non-pressure chronic ulcer of other part of right foot with fat layer exposed; M86.671 Other chronic osteomyelitis, right ankle and foot; Z79.4 Long term (current) use of insulin; Z79.82 Long term (current) use of aspirin; Z79.899 Other long term (current) drug therapy ==

== ENCOUNTER 2019-08-30 00:54 | Day surgery (SDC) | payer OTHER | END 2019-08-30 22:51 | disposition home or self-care (01) | LOC: WOUND 00:54 | DX: E11.621 Type 2 diabetes mellitus with foot ulcer (principal); M86.671 Other chronic osteomyelitis, right ankle and foot; E11.40 Type 2 diabetes mellitus with diabetic neuropathy, unspecified; I10 Essential (primary) hypertension; E11.51 Type 2 diabetes mellitus with diabetic peripheral angiopathy without gangrene; L97.412 Non-pressure chronic ulcer of right heel and midfoot with fat layer exposed; Z79.899 Other long term (current) drug therapy; Z79.4 Long term (current) use of insulin ==

== ENCOUNTER 2019-09-09 00:18 | Day surgery (SDC) | payer OTHER | END 2019-09-09 22:53 | disposition home or self-care (01) | LOC: WOUND 00:18 | DX: E11.621 Type 2 diabetes mellitus with foot ulcer (principal); L97.519 Non-pressure chronic ulcer of other part of right foot with unspecified severity; M86.671 Other chronic osteomyelitis, right ankle and foot; I10 Essential (primary) hypertension; Z79.82 Long term (current) use of aspirin; Z79.4 Long term (current) use of insulin; Z79.899 Other long term (current) drug therapy | CPT/HCPCS: G0463 ==

== ENCOUNTER 2019-09-16 00:22 | Day surgery (SDC) | payer OTHER | END 2019-09-16 23:21 | disposition home or self-care (01) | LOC: WOUND 00:22 | DX: E11.621 Type 2 diabetes mellitus with foot ulcer (principal); M86.671 Other chronic osteomyelitis, right ankle and foot; E11.40 Type 2 diabetes mellitus with diabetic neuropathy, unspecified; E11.51 Type 2 diabetes mellitus with diabetic peripheral angiopathy without gangrene; I10 Essential (primary) hypertension; L97.512 Non-pressure chronic ulcer of other part of right foot with fat layer exposed; Z79.899 Other long term (current) drug therapy; Z79.4 Long term (current) use of insulin; Z79.82 Long term (current) use of aspirin ==

== ENCOUNTER 2019-09-23 00:36 | Day surgery (SDC) | payer OTHER | END 2019-09-23 22:41 | disposition home or self-care (01) | LOC: WOUND 00:36 | DX: E11.621 Type 2 diabetes mellitus with foot ulcer (principal); M86.671 Other chronic osteomyelitis, right ankle and foot; E11.51 Type 2 diabetes mellitus with diabetic peripheral angiopathy without gangrene; E11.40 Type 2 diabetes mellitus with diabetic neuropathy, unspecified; I10 Essential (primary) hypertension; Z79.899 Other long term (current) drug therapy; Z79.82 Long term (current) use of aspirin; Z79.4 Long term (current) use of insulin; L97.512 Non-pressure chronic ulcer of other part of right foot with fat layer exposed ==

== ENCOUNTER 2019-10-01 08:54 | Day surgery (SDC) | payer OTHER | END 2019-10-01 22:46 | disposition home or self-care (01) | LOC: WOUND 08:54 | DX: E11.621 Type 2 diabetes mellitus with foot ulcer (principal); M86.671 Other chronic osteomyelitis, right ankle and foot; L97.415 Non-pressure chronic ulcer of right heel and midfoot with muscle involvement without evidence of necrosis; Z79.899 Other long term (current) drug therapy; Z79.4 Long term (current) use of insulin ==

== ENCOUNTER 2019-10-07 00:19 | Day surgery (SDC) | payer OTHER ==
[~2019-10-07 00:19] MED LIST changes: -BASAGLAR K100 UNIT/2 SC; +BASAGLAR K100 UNIT/4 SC; +GLUCOPHAGE1000 M1 PO; +HUMALOG100 UNIT/1 SC; -Humalog100 UNIT/1 SC; -Metformin HCl1000 MG PO
== END 2019-10-07 22:59 | disposition home or self-care (01) ==
LOC: WOUND 00:19
DX: E11.621 Type 2 diabetes mellitus with foot ulcer (principal); L97.512 Non-pressure chronic ulcer of other part of right foot with fat layer exposed; M86.671 Other chronic osteomyelitis, right ankle and foot; I10 Essential (primary) hypertension

== ENCOUNTER 2019-11-09 00:15 | Day surgery (SDC) | payer OTHER | END 2019-11-09 14:22 | disposition home or self-care (01) | LOC: ATC 00:15 | DX: E11.621 Type 2 diabetes mellitus with foot ulcer (principal); L03.115 Cellulitis of right lower limb; L97.419 Non-pressure chronic ulcer of right heel and midfoot with unspecified severity; E11.40 Type 2 diabetes mellitus with diabetic neuropathy, unspecified; Z89.411 Acquired absence of right great toe; Z79.4 Long term (current) use of insulin; Z89.421 Acquired absence of other right toe(s) | CPT/HCPCS: 96365; J1335 ==

== ENCOUNTER 2019-11-13 00:02 | Day surgery (SDC) | payer OTHER | END 2019-11-13 15:00 | disposition home or self-care (01) | LOC: ATC 00:02 | DX: E11.621 Type 2 diabetes mellitus with foot ulcer (principal); L03.115 Cellulitis of right lower limb; E11.40 Type 2 diabetes mellitus with diabetic neuropathy, unspecified; I10 Essential (primary) hypertension; L97.419 Non-pressure chronic ulcer of right heel and midfoot with unspecified severity; Z89.421 Acquired absence of other right toe(s); Z89.411 Acquired absence of right great toe; Z79.4 Long term (current) use of insulin; Z79.899 Other long term (current) drug therapy; Z79.82 Long term (current) use of aspirin | CPT/HCPCS: 96365; J1335 ==

== ENCOUNTER 2019-11-14 00:06 | Day surgery (SDC) | payer OTHER | END 2019-11-14 14:54 | disposition home or self-care (01) | LOC: ATC 00:06 | DX: E11.621 Type 2 diabetes mellitus with foot ulcer (principal); L03.115 Cellulitis of right lower limb; E11.40 Type 2 diabetes mellitus with diabetic neuropathy, unspecified; I10 Essential (primary) hypertension; Z89.421 Acquired absence of other right toe(s); Z89.411 Acquired absence of right great toe; Z79.4 Long term (current) use of insulin; Z79.899 Other long term (current) drug therapy; Z79.82 Long term (current) use of aspirin; L97.419 Non-pressure chronic ulcer of right heel and midfoot with unspecified severity | CPT/HCPCS: 96365; J1335 ==

== ENCOUNTER 2019-12-15 00:41 | Day surgery (SDC) | payer OTHER | END 2019-12-15 22:50 | disposition home or self-care (01) | LOC: WOUND 00:41 | DX: E11.621 Type 2 diabetes mellitus with foot ulcer (principal); M86.671 Other chronic osteomyelitis, right ankle and foot; E11.51 Type 2 diabetes mellitus with diabetic peripheral angiopathy without gangrene; I10 Essential (primary) hypertension; E11.40 Type 2 diabetes mellitus with diabetic neuropathy, unspecified; L97.512 Non-pressure chronic ulcer of other part of right foot with fat layer exposed; Z79.899 Other long term (current) drug therapy; Z79.4 Long term (current) use of insulin; Z79.82 Long term (current) use of aspirin ==

== ENCOUNTER 2019-12-22 00:28 | Day surgery (SDC) | payer OTHER | END 2019-12-22 22:42 | disposition home or self-care (01) | LOC: WOUND 00:28 | DX: E11.621 Type 2 diabetes mellitus with foot ulcer (principal); M86.671 Other chronic osteomyelitis, right ankle and foot; L97.519 Non-pressure chronic ulcer of other part of right foot with unspecified severity; Z79.4 Long term (current) use of insulin; Z79.899 Other long term (current) drug therapy | CPT/HCPCS: G0463 ==

== ENCOUNTER 2019-12-24 00:01 | Day surgery (SDC) | payer OTHER | END 2019-12-24 22:43 | disposition home or self-care (01) | LOC: WOUND 00:01 | DX: E11.621 Type 2 diabetes mellitus with foot ulcer (principal); M86.671 Other chronic osteomyelitis, right ankle and foot; L97.519 Non-pressure chronic ulcer of other part of right foot with unspecified severity; Z79.4 Long term (current) use of insulin | CPT/HCPCS: G0463 ==

== ENCOUNTER 2020-02-14 00:48 | Day surgery (SDC) | payer OTHER | END 2020-02-14 23:53 | disposition home or self-care (01) | LOC: WOUND 00:48 | DX: E11.621 Type 2 diabetes mellitus with foot ulcer (principal); L97.512 Non-pressure chronic ulcer of other part of right foot with fat layer exposed; E11.52 Type 2 diabetes mellitus with diabetic peripheral angiopathy with gangrene; I96 Gangrene, not elsewhere classified; I10 Essential (primary) hypertension; E11.40 Type 2 diabetes mellitus with diabetic neuropathy, unspecified; E11.69 Type 2 diabetes mellitus with other specified complication; M86.8X7 Other osteomyelitis, ankle and foot; E11.36 Type 2 diabetes mellitus with diabetic cataract; H26.9 Unspecified cataract; F17.210 Nicotine dependence, cigarettes, uncomplicated; Z86.73 Personal history of transient ischemic attack (TIA), and cerebral infarction without residual deficits; Z89.411 Acquired absence of right great toe; Z79.4 Long term (current) use of insulin; Z79.82 Long term (current) use of aspirin; Z79.899 Other long term (current) drug therapy; Z51.5 Encounter for palliative care | CPT/HCPCS: G0463 ==

== ENCOUNTER 2020-02-24 00:22 | Day surgery (SDC) | payer OTHER | END 2020-02-24 23:18 | disposition home or self-care (01) | LOC: WOUND 00:22 | DX: E11.621 Type 2 diabetes mellitus with foot ulcer (principal); L97.512 Non-pressure chronic ulcer of other part of right foot with fat layer exposed; E11.52 Type 2 diabetes mellitus with diabetic peripheral angiopathy with gangrene; I96 Gangrene, not elsewhere classified; E11.69 Type 2 diabetes mellitus with other specified complication; M86.671 Other chronic osteomyelitis, right ankle and foot; E11.40 Type 2 diabetes mellitus with diabetic neuropathy, unspecified; I10 Essential (primary) hypertension; R22.41 Localized swelling, mass and lump, right lower limb; Z86.73 Personal history of transient ischemic attack (TIA), and cerebral infarction without residual deficits; Z89.431 Acquired absence of right foot; Z79.4 Long term (current) use of insulin; Z79.82 Long term (current) use of aspirin; Z79.899 Other long term (current) drug therapy; Z51.5 Encounter for palliative care ==

== ENCOUNTER 2020-03-01 01:07 | Day surgery (SDC) | payer OTHER | END 2020-03-01 22:46 | disposition home or self-care (01) | LOC: WOUND 01:07 | DX: E11.621 Type 2 diabetes mellitus with foot ulcer (principal); L97.512 Non-pressure chronic ulcer of other part of right foot with fat layer exposed; E11.52 Type 2 diabetes mellitus with diabetic peripheral angiopathy with gangrene; I96 Gangrene, not elsewhere classified; E11.40 Type 2 diabetes mellitus with diabetic neuropathy, unspecified; I10 Essential (primary) hypertension; E11.69 Type 2 diabetes mellitus with other specified complication; M86.8X9 Other osteomyelitis, unspecified sites; Z86.73 Personal history of transient ischemic attack (TIA), and cerebral infarction without residual deficits; Z89.431 Acquired absence of right foot; Z79.4 Long term (current) use of insulin; Z79.82 Long term (current) use of aspirin; Z79.899 Other long term (current) drug therapy; Z51.5 Encounter for palliative care | CPT/HCPCS: G0463 ==

== ENCOUNTER 2020-03-16 00:29 | Day surgery (SDC) | payer OTHER | END 2020-03-16 23:29 | disposition home or self-care (01) | LOC: WOUND 00:29 | DX: E11.621 Type 2 diabetes mellitus with foot ulcer (principal); E11.51 Type 2 diabetes mellitus with diabetic peripheral angiopathy without gangrene; E11.40 Type 2 diabetes mellitus with diabetic neuropathy, unspecified; I10 Essential (primary) hypertension; L97.516 Non-pressure chronic ulcer of other part of right foot with bone involvement without evidence of necrosis; Z79.899 Other long term (current) drug therapy; Z79.4 Long term (current) use of insulin | CPT/HCPCS: G0463 ==

== ENCOUNTER 2020-03-23 00:26 | Day surgery (SDC) | payer OTHER ==
[~2020-03-23 00:26] MED LIST changes: -Aspir 8181 MG PO; -BASAGLAR K100 UNIT/4 SC; -CLON.3 PO; -Furosemide20 MG PO; -GLUCOPHAGE1000 M1 PO; -HUMALOG100 UNIT/1 SC; -POTCHL10ER PO
[2020-03-23] MEDS ORDERED: TOUJEO SOL300 UNIT/2 SC ×2 (18:30)
[2020-03-23] MEDS ORDERED: FURO40 PO (18:31)
[2020-03-23] MEDS ORDERED: METF500C PO (18:31)
[2020-03-23] MEDS ORDERED: POTCHL10ER PO (18:32)
[2020-03-23] MEDS ORDERED: NOVOLOG FL100 UNIT/3 SC (18:33)
[2020-03-23] MEDS ORDERED: CLON.3 PO (18:57)
[2020-03-23] MEDS ORDERED: ZESTRIL40 M2 PO (18:57)
[2020-03-23] MEDS ORDERED: Aspir 8181 MG PO (19:00)
== END 2020-03-23 23:16 | disposition home or self-care (01) ==
LOC: WOUND
DX: E11.621 Type 2 diabetes mellitus with foot ulcer (principal); E11.51 Type 2 diabetes mellitus with diabetic peripheral angiopathy without gangrene; E11.40 Type 2 diabetes mellitus with diabetic neuropathy, unspecified; I11.0 Hypertensive heart disease with heart failure; I50.9 Heart failure, unspecified; L97.516 Non-pressure chronic ulcer of other part of right foot with bone involvement without evidence of necrosis; Z79.899 Other long term (current) drug therapy; Z79.4 Long term (current) use of insulin; Z79.82 Long term (current) use of aspirin
CPT/HCPCS: G0463

== ENCOUNTER 2020-03-23 14:47 | Inpatient (IN) | payer OTHER ==
[~2020-03-23] VITALS: Ht 190.5 cm; Wt 138.8 kg
[2020-03-23 15:37] LABS: BASOPHILS ABSOLUTE AUTO 0.07 K/mm3 (0.00-0.23); BASOPHILS PERCENT AUTO 1 % (0-2); EOSINOPHILS ABSOLUTE AUTO 0.29 K/mm3 (0.00-0.68); EOSINOPHILS PERCENT AUTO 3 % (0-6); Hematocrit 33.1 % (37.0-53.0); Hemoglobin 11.1 g/dL (13.5-17.5); IMMATURE GRAN PERCENT AUTO 2 % (0-1); LYMPHOCYTES ABSOLUTE AUTO 1.31 K/mm3 (0.84-5.20); LYMPHOCYTES PERCENT AUTO 11 % (21-46); MONOCYTES ABSOLUTE AUTO 1.13 K/mm3 (0.16-1.47); MONOCYTES PERCENT AUTO 10 % (4-13); Mean Corpuscular HGB 29.2 pg (26.0-34.0); Mean Corpuscular HGB Conc 33.5 g/dL (31.5-36.5); Mean Corpuscular Volume 87 fL (80-100); Mean Platelet Volume 10.5 fL (9.1-12.4); NEUTROPHILS ABSOLUTE AUTO 8.79 K/mm3 (1.96-9.15); NEUTROPHILS PERCENT AUTO 75 % (41-73); Platelet Count 395 K/mm3 (150-400); RDW Coefficient Variation 12.7 % (11.7-14.2); RDW Standard Deviation 40.5 fL (35.1-46.3); White Blood Cell Count 11.79 K/mm3 (4.00-11.30)
[2020-03-23 15:54] LABS: Alanine Aminotransfer (ALT/SGP 18 U/L (12-78); Albumin, Blood 2.6 g/dL (3.4-5.0); Albumin/Globulin Ratio 0.6 (0.8-1.8); Alk Phos 111 U/L (50-136); Anion Gap 5 mmol/L (6-16); Aspartate Aminotrans (AST/SGOT 13 U/L (12-37); Bilirubin, Total 0.6 mg/dL (0.1-1.0); Blood Urea Nitrogen 18 mg/dL (8-24); Bun/Creatinine Ratio 16.1 (12.0-20.0); CO2, Blood 33 mmol/L (21-32); Calcium, Blood 9.2 mg/dL (8.5-10.1); Chloride, Blood 98 mmol/L (98-108); Creatinine, Blood 1.12 mg/dL (0.60-1.20); Globulin, Blood 4.3 g/dL (2.2-4.0); Glomerular Filtration Rate >60 (60-); Glucose, Blood 442 mg/dL (70-99); Potassium, Blood 3.4 mmol/L (3.5-5.5); Sodium, Blood 136 mmol/L (136-145); Total Protein, Blood 6.9 g/dL (6.4-8.2)
[2020-03-23] MEDS ORDERED: TOUJEO SOL300 UNIT/2 SC ×2 (18:30)
[2020-03-23] MEDS ORDERED: METF500C PO (18:31)
[2020-03-23] MEDS ORDERED: FURO40 PO (18:31)
[2020-03-23] MEDS ORDERED: POTCHL10ER PO (18:32)
[2020-03-23] MEDS ORDERED: NOVOLOG FL100 UNIT/3 SC (18:33)
[2020-03-23] MEDS ORDERED: ZESTRIL40 M2 PO (18:57)
[2020-03-23] MEDS ORDERED: CLON.3 PO (18:57)
[2020-03-23] MEDS ORDERED: Aspir 8181 MG PO (19:00)
--- NOTE | 2020-03-23 20:38 | NUR ---
PATIENT ADMITTED TO THE FLOOR DUE TO OSTEOMYLITIS OF THE RIGHT FOOT WOUND. HE WAS SENT IN BY THE WOUND CLINIC FOR NON-HEALING WOUND. PLAN IS TO PLACE A PICC LINE AND GET HIM STARTED ON IV ANTIBOTICS. 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 ISOLATION IS SET UP. HE ARRIVED IN WHICH IS HIS PERSONAL ONE. HE TRANSFERRED TO THE BED USING FURNITURE AN ASSIST. STATES HE USE TO WALK BUT WITH ALL THESE ISSUES WITH HIS FEET HE HAS NOT BEEN WALKING ON THEM. LUNG SOUNDS WITH EXPIRTORY WHEEZES FAINT THAT CLEAR WHEN HE COUGHS. SMOKER. HR SINUS. DENIES ANY BOWEL OR URINARY PROBLEMS. REFUSED TO CHANGE OUT OF CLOTHES OR HAVE FULL SKIN ASSESSMENT DONE. 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 SWELLING FROM FEET TO CALF RIGHT IS GREATER THEN LEFT. STATES PAIN IN THE RIGHT. RIGHT FOOT WRAPPED FROM WOUND CLINIC, HE STATES HE GETS CHANGED EVERY THREE DAYS AND IT WAS DONE TODAY. DOES HAVE AMPUTATION OF TOES ON BOTH FEET FROM HIS DIABETES. BLOOD SUGAR 418 WHICH IS LOWER THEN WHEN THE DOCTOR SAW HIM. WILL MEDICATE PER ORDERS. HE IS INSISTED ON EATING. GAVE HIS SANDWHICH TO EAT. DENIES ANY OTHER NEEDS AT THIS TIME. CALL LIGHT IS IN REACH.
[2020-03-24 05:05] LABS: BASOPHILS ABSOLUTE AUTO 0.07 K/mm3 (0.00-0.23); BASOPHILS PERCENT AUTO 1 % (0-2); EOSINOPHILS ABSOLUTE AUTO 0.38 K/mm3 (0.00-0.68); EOSINOPHILS PERCENT AUTO 3 % (0-6); Hematocrit 31.7 % (37.0-53.0); Hemoglobin 10.4 g/dL (13.5-17.5); IMMATURE GRAN ABSOLUTE AUTO 0.19 K/mm3 (0.00-0.10); IMMATURE GRAN PERCENT AUTO 2 % (0-1); LYMPHOCYTES ABSOLUTE AUTO 1.56 K/mm3 (0.84-5.20); LYMPHOCYTES PERCENT AUTO 14 % (21-46); MONOCYTES PERCENT AUTO 10 % (4-13); Mean Corpuscular HGB Conc 32.8 g/dL (31.5-36.5); Mean Corpuscular Volume 88 fL (80-100); Mean Platelet Volume 10.5 fL (9.1-12.4); NEUTROPHILS ABSOLUTE AUTO 7.97 K/mm3 (1.96-9.15); NEUTROPHILS PERCENT AUTO 71 % (41-73); Platelet Count 385 K/mm3 (150-400); RDW Coefficient Variation 12.6 % (11.7-14.2); RDW Standard Deviation 40.8 fL (35.1-46.3); Red Blood Cell Count 3.59 M/mm3 (4.30-5.90); White Blood Cell Count 11.27 K/mm3 (4.00-11.30)
[2020-03-24 05:29] LABS: Anion Gap 6 mmol/L (6-16); Blood Urea Nitrogen 19 mg/dL (8-24); Bun/Creatinine Ratio 16.8 (12.0-20.0); CO2, Blood 32 mmol/L (21-32); Calcium, Blood 8.9 mg/dL (8.5-10.1); Chloride, Blood 101 mmol/L (98-108); Creatinine, Blood 1.13 mg/dL (0.60-1.20); Glomerular Filtration Rate >60 (60-); Glucose, Blood 345 mg/dL (70-99); Potassium, Blood 3.6 mmol/L (3.5-5.5); Sodium, Blood 139 mmol/L (136-145)
--- NOTE | 2020-03-24 05:49 | NUR ---
SHIFT SUMMARY: ADMITTED FOR OSTEOMYLITIS LAST NIGHT AFTER REFERRAL FROM WOUND CLINIC. AOX3, COOPERATIVE, 1 ASSIST. LIKES TO SIT UP IN WC. REFUSED TO HAVE FULL SKIN ASSESSMENT, OR TAKE OFF CLOTHING. BLE SWOLLEN FROM FEET TO CALF AREA, RIGHT IS GREATER THEN LEFT. THERE IS DISOLORATION AND VASCULAR DERMATITIS ON THE CALFS. RIGHT FOOT IS DRESSED IN MARINA WRAP AND GAUZE WHICH WAS PLACED BYWOUND CLINIC, STATES IT GETS CHANGED EVERY 3 DAYS. PAIN MANAGED WITH NORCO. OCCATIONAL WHEEZES IN LUNGS, SMOKER. VS WNL, AFEBRILE. IV AB GIVEN PER ORDERS. CALL LIGHT HAS REMAINED IN REACH. PLAN IS TO GT PICC LINE PLACED, START IV AB TREATMENT PLAN AND PLAN FOR HOME ANTIBOTIC CARE.
[2020-03-24 11:30] LABS: Influenza A, PCR Negative (NEGATIVE); Influenza B, PCR Negative (NEGATIVE); Resp Syncytial Virus, PCR Negative (NEGATIVE); SARS-Cov-2 (COVID-19) PCR, MMC Negative (NEGATIVE)
--- NOTE | 2020-03-24 13:29 | NUR ---
surg center expressed concer r/high cbg, redid it got 328 will await orders, no insulin perscribed for this time/range
--- NOTE | 2020-03-24 13:40 | NUR ---
red fluid seeping from foot bandage, placed apb pads then wrapped with a an arthur wrap, pt asked for a second arthur wrap
--- NOTE | 2020-03-24 14:23 | NUR ---
C/O CRAMPING PAIN TO LOWER ABDOMEN, MIDDLE, RATES 7/10. CALLED MEDICAL FLOOR RN, EMILY, TO REPORT THIS TO AND HAVE PASSED ON TO THE HOSPITALIST POST-OP. REPORTED TO DR DIAZ, ANESTHESIOLOGIST. NO NEW ORDERS.
--- NOTE | 2020-03-24 14:26 | NUR ---
SURG NURSE CALLED TO REPORT pt had abdmn pain, pt had complained of being hungry while on floor, she states it was more than that, will assess when pt returns to floor
--- NOTE | 2020-03-24 19:14 | NUR ---
came back from procedure very hungry since he had been NPO for so long, ordered him an extra sandwich from the kitchen, checked bs and treated as prescribed, call light in reach, rm air, abx infusing with no s/sx of infection or infiltration, wound cdi, will monitor and treat until f/u, bsr shared with noc nurse and pt
--- NOTE | 2020-03-25 07:39 | NUR ---
SHIFT SUMMARY PATIENT ALERT AND ORIENTED. HAD NO COMPLAINTS OF PAIN OVERNIGHT. WAS ABLE TO SLEEP FAIRLY WELL. IV PATENT AND FLUSHED. BED IN LOWEST POSITION WITH WHEELS LOCKED. CALL LIGHT WITHIN REACH. REPORT GIVEN TO ONCOMING RN.
[2020-03-25 09:36] LABS: BASOPHILS ABSOLUTE AUTO 0.07 K/mm3 (0.00-0.23); BASOPHILS PERCENT AUTO 1 % (0-2); EOSINOPHILS ABSOLUTE AUTO 0.39 K/mm3 (0.00-0.68); EOSINOPHILS PERCENT AUTO 3 % (0-6); Hemoglobin 10.8 g/dL (13.5-17.5); IMMATURE GRAN ABSOLUTE AUTO 0.26 K/mm3 (0.00-0.10); IMMATURE GRAN PERCENT AUTO 2 % (0-1); LYMPHOCYTES ABSOLUTE AUTO 1.92 K/mm3 (0.84-5.20); LYMPHOCYTES PERCENT AUTO 17 % (21-46); MONOCYTES ABSOLUTE AUTO 1.02 K/mm3 (0.16-1.47); MONOCYTES PERCENT AUTO 9 % (4-13); Mean Corpuscular HGB 29.8 pg (26.0-34.0); Mean Corpuscular HGB Conc 32.7 g/dL (31.5-36.5); Mean Corpuscular Volume 91 fL (80-100); Mean Platelet Volume 10.4 fL (9.1-12.4); NEUTROPHILS ABSOLUTE AUTO 7.88 K/mm3 (1.96-9.15); NEUTROPHILS PERCENT AUTO 68 % (41-73); Platelet Count 441 K/mm3 (150-400); RDW Coefficient Variation 12.8 % (11.7-14.2); RDW Standard Deviation 42.4 fL (35.1-46.3); Red Blood Cell Count 3.63 M/mm3 (4.30-5.90); White Blood Cell Count 11.54 K/mm3 (4.00-11.30)
[2020-03-25 09:56] LABS: Vancomycin, Trough 21.1 ug/mL (5.0-10.0)
--- NOTE | 2020-03-25 11:50 | NUR ---
CRITICAL VALUE CALLED IN FROM LAB AT 1100, SINCE IT WAS HIGH AND TIME FOR NEXT DOSE OF VANCO CALLED PHARMACY WHO ADJUSTED TIME AND DOSE OF VANCO ALL DONE WITHIN 10 MIN OF LAB CALL
--- NOTE | 2020-03-25 12:46 | NUR ---
DR HERNANDEZ requested a consult for above ankle amputation, called ortho scientist electronics for 03/25 dr padilla who answered and said he would come in and talk to the pt, informed pt of status and encouraged him to write down questions he might want to ask the surgon, pt is accepting need for amputation and discussing with staff adjustments and accomadations that he might need to make, dr jack the hospitalist pointed out that if surgery is scheduled the blood thinner drip should be stopped and asked that nursing monitor, will pass on to noc staff at r
--- NOTE | 2020-03-25 18:14 | NUR ---
a+o, abx infusing with no s/sx of infiltration or infection at site, waiting for consultation r/amputation, enjoyed dinner and visit from family, call light in reach, no acute change noted in condition, dressing cdi, sitting up watching tv, rm air, able to transfer from bed to chair, stated he had used bathroom on his own, will continue to monitor and treat until share bsr with noc staff and pt
--- NOTE | 2020-03-26 04:07 | NUR ---
TALENT ACQUISITION SPECIALIST SUMMARY PT HAS NOT SLEPT THIS SHIFT AND IS CURRENTLY SITTING IN HIS WHEELCHAIR IN HIS ROOM. AFTER IV ACCESS WAS LOST AND WAS UNABLE TO REESTABLISH [facility] WAS CONTACT[facility] AND A POWERGLIDE WAS PLACED IN THE PT'S MAUREEN. PT HAS DENIED ANY PAIN OR NAUSEA THIS SHIFT. PT IS ABLE TO TRANSFER SELF FROM BED TO WHEELCHAIR. NO NEW S/S THIS SHIFT, WCTM.
[2020-03-26 05:57] LABS: BASOPHILS ABSOLUTE AUTO 0.07 K/mm3 (0.00-0.23); BASOPHILS PERCENT AUTO 1 % (0-2); EOSINOPHILS PERCENT AUTO 5 % (0-6); Hematocrit 32.6 % (37.0-53.0); Hemoglobin 10.3 g/dL (13.5-17.5); IMMATURE GRAN ABSOLUTE AUTO 0.18 K/mm3 (0.00-0.10); IMMATURE GRAN PERCENT AUTO 2 % (0-1); LYMPHOCYTES ABSOLUTE AUTO 1.78 K/mm3 (0.84-5.20); LYMPHOCYTES PERCENT AUTO 20 % (21-46); MONOCYTES ABSOLUTE AUTO 0.78 K/mm3 (0.16-1.47); MONOCYTES PERCENT AUTO 9 % (4-13); Mean Corpuscular HGB 28.5 pg (26.0-34.0); Mean Corpuscular HGB Conc 31.6 g/dL (31.5-36.5); Mean Corpuscular Volume 90 fL (80-100); Mean Platelet Volume 10.2 fL (9.1-12.4); NEUTROPHILS ABSOLUTE AUTO 5.63 K/mm3 (1.96-9.15); NEUTROPHILS PERCENT AUTO 64 % (41-73); Platelet Count 492 K/mm3 (150-400); RDW Coefficient Variation 12.6 % (11.7-14.2); RDW Standard Deviation 42.1 fL (35.1-46.3); Red Blood Cell Count 3.61 M/mm3 (4.30-5.90); White Blood Cell Count 8.84 K/mm3 (4.00-11.30)
--- NOTE | 2020-03-26 08:35 | NUR ---
PT DOWN FOR XR SO MEDICATION TIME INTERRUPTED
--- NOTE | 2020-03-26 11:15 | NUR ---
DR UP TO CONSULT R/SURGERY, RECOMMENDED ELEVATION AND SLIGHT PRESSURE TO REDUCE FLUID IN LEG, PT AGREED, DR REVIEWED information r/leg history and current condition, pt agreed with proposed mid calf amputation, dr measured and marked location on leg, then wrapped leg gently, leg currently elevated, called hospitalist got diet order for today, surgon recomended holding blood thinner on day of surgery but to give tonight's dose, will pass on to staff
[2020-03-26 16:19] LABS: Albumin, Blood 2.1 g/dL (3.4-5.0); Anion Gap 2 mmol/L (6-16); Blood Urea Nitrogen 10 mg/dL (8-24); Bun/Creatinine Ratio 10.2 (12.0-20.0); CO2, Blood 32 mmol/L (21-32); Calcium, Blood 8.4 mg/dL (8.5-10.1); Chloride, Blood 109 mmol/L (98-108); Creatinine, Blood 0.98 mg/dL (0.60-1.20); Glomerular Filtration Rate >60 (60-); Glucose, Blood 158 mg/dL (70-99); Phosphorus, Blood 2.8 mg/dL (2.5-4.9); Potassium, Blood 4.2 mmol/L (3.5-5.5); Sodium, Blood 143 mmol/L (136-145)
--- NOTE | 2020-03-26 19:32 | NUR ---
problems with powerglide made it hard to give abx, it was positional but cn was able to get it to keep going, call light in reach, rm air, l leg elevated and wrapped, npo at mid night for am procedure
--- NOTE | 2020-03-27 04:34 | NUR ---
SHIFT SUMMARY A/O, ABLE TO MAKE NEEDS KNOWN. COOPERATIVE WITH CARE; HOWEVER, GETS UPSET EASILY. ANSWERS QUESTIONS APPROPRIATELY. NO C/O PAIN/DISCOMFORT THIS SHIFT. 1P TO INDEPENDENT TRANSFER TO W/C FOR MOBILIZATION. HAS APPEARED TO REST MUCH OF SHIFT. RECIEVED ORDERED ABX WITHOUT COMPLICATION TO VENOUS ACCESS. REMAINED NPO T/O NIGHT. NO ACUTE CHANGES NOTED AT THIS TIME. APPEARS HYPERTENSIVE; HOWEVER, REMAINS ON TREND WITH PREVIOUS PRESSURES. ALL OTHER VS WNL/AFEBRILE. BED REMAINS IN LOWEST POSITION. CALL LIGHT AND BELONGINGS WITHIN REACH. REPORT TO ONCOMING RN.
--- NOTE | 2020-03-27 18:45 | NUR ---
SHIFT SUMMARY PT VERY CHATTY WHILE STAFF IN ROOM. HAS BEEN COOPERATIVE AND APPROPRIATE WITH STAFF. DR. BOTELLO IN ROOM THIS MORNING AND DECIDED TO WAIT ON SURGERY. MEASURED RLE AND REPORTED LEG SWELLING DECREASING. PT STATED ITS SMALLER THAN ITS BEEN IN MANY YEARS. UP TO BATHROOM INDEPENDENTLY. KEEPS RLE ELEVATED ON PILLOWS MOST OF THE TIME. DENIES PAIN.
--- NOTE | 2020-03-28 04:12 | NUR ---
SHIFT SUMMARY: PT A&O X4. VS WNL THROUGHOUT SHIFT. PT CALM AND COOPERATIVE WITH CARE. DENIES PAIN TO RLE. DRESSING TO RLE APPEARS C/D/I. SWELLING HAS CONTINUED TO IMPROVE. PT C/O HEADACHE WHICH RESOLVED WITH MEDICATION AND ICE PACK. USING URINAL TO VOID. PT HAS BEEN NPO SINCE MIDNIGHT FOR POSS BKA TODAY. IV ABX INFUSING WITH FLUIDS TKO.
--- NOTE | 2020-03-28 12:00 | NUR ---
DAY SURGERY HERE TO PICK PT UP TO OR.
--- NOTE | 2020-03-28 12:10 | NUR ---
History, Chart, Medications and Allergies reviewed before start of procedure. Exp wheezes noted bilateral lungs. Patient confirms NPO status and agrees with scheduled surgery. Pre-Op teaching done. Pt verbalizes understanding.
--- NOTE | 2020-03-28 14:29 | NUR ---
03/28/20 1429 Nolan Melgar PATIENT ON SCHEDULED ANTIBIOTICS
--- NOTE | 2020-03-28 19:38 | NUR ---
SHIFT SUMMARY PT RETURNED APPROX 1600 FROM OR. AWAKE AND ALERT BUT DOZING OFF AND ON. CONTINUOUS OXIMETRY PLACED DUE TO SATS IN PACU DROPPING OCC AND REQUIRING TO TAKE DEEP BREATHS. SATS WOULD START TO DROP AFTER ARRIVAL TO ROOM. O2 STARTED AT 2L/M BY PA AND SATS HAVE BEEN STABLE IN HIGH 90'S SINCE. MOSTLY AWAKE THIS EVENING. SPOKE WITH DR. ALLRED ABOUT DIET AND ELEVATED BP. 1400 CLONIDINE GIVEN LATE. DRESSING TO RLE CDI. REPORTS PAIN 2-3 APPROX 1830. ENCOURAGED PT TO CALL WHEN REACHES 4-5 FOR PAIN MEDS. POST OP VS BEING COMPLETED.
--- NOTE | 2020-03-29 00:56 | NUR ---
RBKA-POST OP PT S/P R BKA. POST OP VITALS REMAIN STABLE. THERE IS SOME BLOOD AND OOZING COMING FROM DRESSING. MODERATE AMOUNT. LEGS FURTHER ELEVATED AND LEGS ARE ON PILLOWS TO TO FURHTER REMEDY THE BLEEDING. SPOKE WITH SUPERVISOR OPERATIONSJOYCE MIDDLETON RN WHO STATES NOT REMOVE DRESSING BUT TO REINFORCE IF NEEDED. PT CURRENTLY HAS STUMP SLEEVE IN PLACE AND MARINA DRESSING BOTH ARE SNUGGLY IN PLACE. SPOKE WITH SURGICAL FLOOR SUPERVISOR OPERATIONSJOYCE HUMPHREY WHO STATES SOME OOZING TO BE EXPECTED, AND SHOULD NOT BE OF CONCERN LONG VITALS ARE STABLE. WILL KEEP LEGS ELEVATED AND CONTINUE TO MONITOR. NO MORNING LABS ORDERED ON PT. WILL NOTIFY HOSPITALIST TO GET AM LABS ORDERED.
--- NOTE | 2020-03-29 03:45 | NUR ---
REBECCA-POST OP DR. HERNANDEZ NOTIFIED OF MODERATE BLEEDING FROM STUMP. CBC, INR, BMP ORDERED. NO ADDITIONAL ORDERS GIVEN. LEGS ARE ELEVATED ON PILLOWS AND STUMP REINFORCED WITH KERLEX. POST OP VITALS REMAIN STABLE.
[2020-03-29 05:29] LABS: BASOPHILS ABSOLUTE AUTO 0.05 K/mm3 (0.00-0.23); BASOPHILS PERCENT AUTO 1 % (0-2); EOSINOPHILS ABSOLUTE AUTO 0.24 K/mm3 (0.00-0.68); EOSINOPHILS PERCENT AUTO 2 % (0-6); Hemoglobin 9.9 g/dL (13.5-17.5); IMMATURE GRAN PERCENT AUTO 1 % (0-1); LYMPHOCYTES ABSOLUTE AUTO 1.37 K/mm3 (0.84-5.20); LYMPHOCYTES PERCENT AUTO 14 % (21-46); MONOCYTES ABSOLUTE AUTO 0.79 K/mm3 (0.16-1.47); MONOCYTES PERCENT AUTO 8 % (4-13); Mean Corpuscular HGB 28.9 pg (26.0-34.0); Mean Corpuscular HGB Conc 31.9 g/dL (31.5-36.5); Mean Corpuscular Volume 91 fL (80-100); Mean Platelet Volume 9.8 fL (9.1-12.4); NEUTROPHILS ABSOLUTE AUTO 7.57 K/mm3 (1.96-9.15); NEUTROPHILS PERCENT AUTO 75 % (41-73); Platelet Count 501 K/mm3 (150-400); RDW Standard Deviation 42.5 fL (35.1-46.3); Red Blood Cell Count 3.42 M/mm3 (4.30-5.90); White Blood Cell Count 10.12 K/mm3 (4.00-11.30)
[2020-03-29 05:39] LABS: International Normalized Ratio 1.04; Prothrombin Time Results 11.1 Sec (9.7-11.5)
--- NOTE | 2020-03-29 05:50 | NUR ---
R BKA-POST OP H&H, INR STABLE WITH LAB DRAW THIS AM. MONITORING.
--- NOTE | 2020-03-29 05:52 | NUR ---
SHIFT SUMMARY PT POST R BKA YESTERDAY AFTERNOON. PT FINDS ADEQUATE PAIN CONTROL WITH NORCO, AND STATES PAIN ONLY WITH MOVEMENT. STUMP DRESSED BY DR. BOTELLO, DRESSING REMAINS INTACT T/O SHIFT. THERE IS SOME OOZING MODERATE AMOUNT. REINFORCED WITH MD KODY AWARE. INR H&H STABLE. POST OP VITALS ARE STABLE. LEGS ELEVATED ON PILLOWS WHICH HELPS WITH DRAINAGE. IV ANTIBIOTICS CONTINUED ORDERED. PT HAS VOIDED SINCE SURGERY. 400 MLS OUT THIS SHIFT. PT FREE OF N/V. APPETITE GOOD. BED IN LOWEST POSITION, CALL LIGHT WITHIN REACH.
[2020-03-29 05:54] LABS: Anion Gap 2 mmol/L (6-16); Blood Urea Nitrogen 8 mg/dL (8-24); Bun/Creatinine Ratio 9.4 (12.0-20.0); CO2, Blood 31 mmol/L (21-32); Calcium, Blood 8.4 mg/dL (8.5-10.1); Chloride, Blood 105 mmol/L (98-108); Creatinine, Blood 0.85 mg/dL (0.60-1.20); Glomerular Filtration Rate >60 (60-); Glucose, Blood 197 mg/dL (70-99); Potassium, Blood 4.5 mmol/L (3.5-5.5); Sodium, Blood 138 mmol/L (136-145)
[2020-03-29 11:54] LABS: Percent Saturation 18.6 % (20.0-50.0)
--- NOTE | 2020-03-29 18:30 | NUR ---
SHIFT SUMMARY- PT ALERT AND ORIENTED, USES THE URINAL INDEPENDENTLY IN THE BED. DR STAUFFER CAME TO SEE THE PT AND CHANGE DRESSINGS. PT DENIED PAIN MEDICINE UNTIL AFTER THE DRESSING CHANGE. MEDICATED ONCE DRESSING CHANGE WAS COMPLETED AND THE PT WENT TO SLEEP. WHEN THE PT AWOKE HE WAS SCREAMING AND CRYING IN PAIN, TEARS AND STUFFY NOSE FROM THE CRYING, HOLDING HIS BREATH AND SAYING "OWIE, OWIE, OWIE!" CALLED DR BRANHAM AND RECIEVED A OT ORDER FOR NORCO 10, BUT D/T SUCH EXTREME PAIN CALLED HER BACK TO REQUEST IV OPTIONS. RECIEVED ORDER FOR IV FENTANYL 50 MCG AND HOLD NORCO 10. GAVE IV FENTANYL WITH LITTLE RELIEF IF ANY. PT STATED THE DRESSING WAS TOO TIGHT. CALLED DR STAUFFER AND SPOKE WITH HER AND RECIEVED AN OK TO LOOSEN THE DRESSING. DRESSING LOOSENED BUT PAIN STILL EXTREME, SPOKE TO DR BRANHAM AND REQUESTED SHE COME TO SEE THE PT. SHE REQUESTED THAT WE CALL DR ALLRED. NORCO 5 CHANGED TO NORCO 5-10 VERBAL ORDER NOT TO GIVE UNTIL 3-4 HOURS AFTER THE IV FENTANYL. SPOKE TO DR ALLRED ABOUT THE PAIN MANAGEMENT RECIEVED ORDER FOR NORCO 5 NOW. PT BG 92 OK TO HOLD INSULIN AT THIS TIME. PT HAS A TEMP 101.5 DR ALLRED IS AWARE. PT PAIN SEEMS TO BE WELL MANAGED, MARINA WRAP ON THE SIDE TABLE WELL THE STUMP SOCK. PT CAN NOT TOLLERATE EITHER OF THEM AT THIS TIME WILL PASS ON IN REPORT TO NIGHT RN.
--- NOTE | 2020-03-30 03:57 | NUR ---
SUMMARY PT HAD NO ISSUES NOTED. PT PAIN TX PER JUN W/ RELIEF. PT HAS BEEN SLEEPING OFF AND ON. PT PLESANT AND COOPERATIVE. PT CURRENTLY SLEEPING AND BREATHING EASY. CALL LIGHT IN REACH.
[2020-03-30 07:47] LABS: BASOPHILS ABSOLUTE AUTO 0.04 K/mm3 (0.00-0.23); BASOPHILS PERCENT AUTO 1 % (0-2); EOSINOPHILS ABSOLUTE AUTO 0.24 K/mm3 (0.00-0.68); EOSINOPHILS PERCENT AUTO 3 % (0-6); Hematocrit 30.6 % (37.0-53.0); Hemoglobin 9.8 g/dL (13.5-17.5); IMMATURE GRAN PERCENT AUTO 1 % (0-1); LYMPHOCYTES ABSOLUTE AUTO 1.29 K/mm3 (0.84-5.20); LYMPHOCYTES PERCENT AUTO 16 % (21-46); MONOCYTES ABSOLUTE AUTO 0.85 K/mm3 (0.16-1.47); MONOCYTES PERCENT AUTO 11 % (4-13); Mean Corpuscular HGB 29.3 pg (26.0-34.0); Mean Corpuscular Volume 91 fL (80-100); Mean Platelet Volume 9.9 fL (9.1-12.4); NEUTROPHILS ABSOLUTE AUTO 5.44 K/mm3 (1.96-9.15); NEUTROPHILS PERCENT AUTO 68 % (41-73); Platelet Count 475 K/mm3 (150-400); RDW Coefficient Variation 13.2 % (11.7-14.2); RDW Standard Deviation 43.5 fL (35.1-46.3); Red Blood Cell Count 3.35 M/mm3 (4.30-5.90); White Blood Cell Count 7.96 K/mm3 (4.00-11.30)
[2020-03-30 08:06] LABS: Anion Gap 3 mmol/L (6-16); Blood Urea Nitrogen 10 mg/dL (8-24); Bun/Creatinine Ratio 11.4 (12.0-20.0); CO2, Blood 28 mmol/L (21-32); Calcium, Blood 8.5 mg/dL (8.5-10.1); Chloride, Blood 108 mmol/L (98-108); Creatinine, Blood 0.88 mg/dL (0.60-1.20); Glomerular Filtration Rate >60 (60-); Glucose, Blood 226 mg/dL (70-99); Potassium, Blood 4.3 mmol/L (3.5-5.5); Sodium, Blood 139 mmol/L (136-145)
[2020-03-30 12:06] LABS: Influenza A, PCR Negative (NEGATIVE); Influenza B, PCR Negative (NEGATIVE); Resp Syncytial Virus, PCR Negative (NEGATIVE); SARS-Cov-2 (COVID-19) PCR, MMC Negative (NEGATIVE)
[2020-03-30] MEDS ORDERED: SENN187 PO (12:24)
[2020-03-30] MEDS ORDERED: Norco 5-325 Ta1 EACH PO (12:24)
[2020-03-30] MEDS ORDERED: VISBIOME PROBIOTIC PO (12:25)
[2020-03-30] MEDS ORDERED: DOCU100 PO (12:25)
--- NOTE | 2020-03-30 16:09 | NUR ---
DISCHARGE NOTE- PT DISCHARGED TO [facility]. ATTEMPTED TO CALL REPORT HELD FOR 10-15 MINUTES, WAITING FOR A CALL BACK AT THIS TIME. PT TAKEN VIA WC TRANSPORT TO [facility], PAIN MEDICATION GIVEN AT THE TIME OF DISCHARGE, IV DC'D AT THE TIME OF DISCHARGE. PACKET GIVEN TO TRANSPORT HARD COPY SCRIPT FOR PAIN MEDICATION IN THE PACKET.
== END 2020-03-30 15:47 | DRG 617 ==
LOC: ER 14:47 → MEDS 14:48 → ER 19:41 → MEDS 19:55 → ER 19:55 → MEDS 19:55
PROVIDERS: Family Medicine; Internal Medicine; Nurse Practitioner Acute Care; Orthopaedic Surgery; Pharmacist; Physician Assistant; Podiatrist Foot & Ankle Surgery; ADMIT Internal Medicine
PROC: 0JBQ0ZZ Excision of Right Foot Subcutaneous Tissue and Fascia, Open Approach (ICD-10-PCS; 2020-03-24)
PROC: 0Y6H0Z1 Detachment at Right Lower Leg, High, Open Approach (ICD-10-PCS; principal; 2020-03-28 12:00)
DX: E11.69 Type 2 diabetes mellitus with other specified complication (principal); M86.171 Other acute osteomyelitis, right ankle and foot; L02.611 Cutaneous abscess of right foot; E11.40 Type 2 diabetes mellitus with diabetic neuropathy, unspecified; E66.01 Morbid (severe) obesity due to excess calories; E87.6 Hypokalemia; F17.210 Nicotine dependence, cigarettes, uncomplicated; I10 Essential (primary) hypertension; I73.9 Peripheral vascular disease, unspecified; Z86.73 Personal history of transient ischemic attack (TIA), and cerebral infarction without residual deficits; Z99.3 Dependence on wheelchair; K59.03 Drug induced constipation; E86.0 Dehydration; Z68.38 Body mass index [BMI] 38.0-38.9, adult; Z79.4 Long term (current) use of insulin; B95.61 Methicillin susceptible Staphylococcus aureus infection as the cause of diseases classified elsewhere; E11.621 Type 2 diabetes mellitus with foot ulcer; L97.519 Non-pressure chronic ulcer of other part of right foot with unspecified severity
CPT/HCPCS: 0241U; 36415; 73551; 73590; 73702; 80048; 80053; 80069; 80202; 82565; 82728; 82947; 83540; 83550; 83605; 85025; 85610; 87040; 87070; 87075; 87077; 87147; 87186; 87205; 88307; 93005; 93010; 94762; 96365-59; 96366-59; 96367-59; 96372; 96376; 97110; 97162; 97166; 97530; 99284-25; A9270; A9270-GY; C1751; G0378; J0461; J0690; J1100; J1170; J1644; J1815; J2250; J2405; J2543; J2704; J2710; J2765; J3010; J3370; J7050; J7120; Q9967

== ENCOUNTER 2021-02-08 04:03 | Emergency (ER) | payer OTHER ==
[~2021-02-08] VITALS: Ht 190.5 cm; Wt 136.1 kg
[~2021-02-08 04:03] MED LIST changes: +Aspir 8181 MG PO; +CLON.3 PO; +DOCU100 PO; +FURO40 PO; +METF500C PO; +NOVOLOG FL100 UNIT/3 SC; +POTCHL10ER PO; +SENN187 PO; +TOUJEO SOL300 UNIT/2 SC; +VISBIOME PROBIOTIC PO; +ZESTRIL40 M2 PO
[2021-02-08 04:24] LABS: BASOPHILS ABSOLUTE AUTO 0.05 K/mm3 (0.00-0.23); BASOPHILS PERCENT AUTO 1 % (0-2); EOSINOPHILS ABSOLUTE AUTO 0.28 K/mm3 (0.00-0.68); EOSINOPHILS PERCENT AUTO 3 % (0-6); Hematocrit 37.9 % (37.0-53.0); Hemoglobin 12.8 g/dL (13.5-17.5); IMMATURE GRAN ABSOLUTE AUTO 0.02 K/mm3 (0.00-0.10); IMMATURE GRAN PERCENT AUTO 0 % (0-1); LYMPHOCYTES ABSOLUTE AUTO 1.48 K/mm3 (0.84-5.20); LYMPHOCYTES PERCENT AUTO 16 % (21-46); MONOCYTES ABSOLUTE AUTO 0.71 K/mm3 (0.16-1.47); MONOCYTES PERCENT AUTO 8 % (4-13); Mean Corpuscular HGB 29.2 pg (26.0-34.0); Mean Corpuscular HGB Conc 33.8 g/dL (31.5-36.5); Mean Corpuscular Volume 87 fL (80-100); Mean Platelet Volume 10.4 fL (9.1-12.4); NEUTROPHILS PERCENT AUTO 72 % (41-73); Platelet Count 289 K/mm3 (150-400); RDW Coefficient Variation 14.3 % (11.7-14.2); RDW Standard Deviation 45.7 fL (35.1-46.3); Red Blood Cell Count 4.38 M/mm3 (4.30-5.90); White Blood Cell Count 9.04 K/mm3 (4.00-11.30)
[2021-02-08 04:47] LABS: Anion Gap 2 mmol/L (6-16); Blood Urea Nitrogen 14 mg/dL (8-24); Bun/Creatinine Ratio 17.5 (12.0-20.0); CO2, Blood 30 mmol/L (21-32); Calcium, Blood 9.1 mg/dL (8.5-10.1); Chloride, Blood 106 mmol/L (98-108); Glomerular Filtration Rate >60 (60-); Glucose, Blood 309 mg/dL (70-99); Potassium, Blood 3.8 mmol/L (3.5-5.5); Sodium, Blood 138 mmol/L (136-145); Troponin I <0.015 ng/mL (0.000-0.040)
[2021-02-08 05:55] LABS: Alanine Aminotransfer (ALT/SGP 13 U/L (12-78); Albumin, Blood 3.1 g/dL (3.4-5.0); Albumin/Globulin Ratio 0.8 (0.8-1.8); Alk Phos 127 U/L (50-136); Aspartate Aminotrans (AST/SGOT 8 U/L (12-37); Bilirubin, Direct <0.1 mg/dL (0.0-0.3); Bilirubin, Indirect Unable to Calculate mg/dL (0.1-0.7); Bilirubin, Total 0.4 mg/dL (0.1-1.0); Total Protein, Blood 7.1 g/dL (6.4-8.2)
[2021-02-09] MEDS ORDERED: FUROSEMIDE40 MG PO (12:10)
== END 2021-02-08 08:39 | disposition home or self-care (01) ==
LOC: ER 04:03
PROVIDERS: Student in an Organized Health Care Education/Training Program
DX: K80.20 Calculus of gallbladder without cholecystitis without obstruction (principal); I10 Essential (primary) hypertension; E11.40 Type 2 diabetes mellitus with diabetic neuropathy, unspecified; F17.200 Nicotine dependence, unspecified, uncomplicated; Z79.899 Other long term (current) drug therapy; Z79.82 Long term (current) use of aspirin; Z79.4 Long term (current) use of insulin; Z79.84 Long term (current) use of oral hypoglycemic drugs
CPT/HCPCS: 71045; 76705; 80048; 80076; 83690; 84484; 85025; 93005; 93010; 96374; 96375; 99285-25; A9270; J1885; J2270

== ENCOUNTER 2021-02-09 11:08 | Inpatient (IN) | payer OTHER ==
[~2021-02-09] VITALS: Ht 190.5 cm; Wt 145.2 kg
[2021-02-09 11:30] LABS: BASOPHILS ABSOLUTE AUTO 0.05 K/mm3 (0.00-0.23); BASOPHILS PERCENT AUTO 0 % (0-2); EOSINOPHILS ABSOLUTE AUTO 0.03 K/mm3 (0.00-0.68); EOSINOPHILS PERCENT AUTO 0 % (0-6); Hematocrit 38.8 % (37.0-53.0); Hemoglobin 13.1 g/dL (13.5-17.5); IMMATURE GRAN ABSOLUTE AUTO 0.11 K/mm3 (0.00-0.10); IMMATURE GRAN PERCENT AUTO 1 % (0-1); LYMPHOCYTES ABSOLUTE AUTO 1.05 K/mm3 (0.84-5.20); LYMPHOCYTES PERCENT AUTO 5 % (21-46); MONOCYTES ABSOLUTE AUTO 1.79 K/mm3 (0.16-1.47); MONOCYTES PERCENT AUTO 8 % (4-13); Mean Corpuscular HGB Conc 33.8 g/dL (31.5-36.5); Mean Corpuscular Volume 86 fL (80-100); Mean Platelet Volume 10.6 fL (9.1-12.4); NEUTROPHILS ABSOLUTE AUTO 19.67 K/mm3 (1.96-9.15); NEUTROPHILS PERCENT AUTO 87 % (41-73); Platelet Count 294 K/mm3 (150-400); RDW Coefficient Variation 14.7 % (11.7-14.2); RDW Standard Deviation 46.6 fL (35.1-46.3); Red Blood Cell Count 4.51 M/mm3 (4.30-5.90)
[2021-02-09 11:54] LABS: Alanine Aminotransfer (ALT/SGP 14 U/L (12-78); Albumin, Blood 3.1 g/dL (3.4-5.0); Albumin/Globulin Ratio 0.7 (0.8-1.8); Alk Phos 98 U/L (50-136); Anion Gap 4 mmol/L (6-16); Aspartate Aminotrans (AST/SGOT 10 U/L (12-37); Bilirubin, Total 1.2 mg/dL (0.1-1.0); Blood Urea Nitrogen 18 mg/dL (8-24); Bun/Creatinine Ratio 22.7 (12.0-20.0); CO2, Blood 27 mmol/L (21-32); Calcium, Blood 9.5 mg/dL (8.5-10.1); Chloride, Blood 105 mmol/L (98-108); Creatinine, Blood 0.79 mg/dL (0.60-1.20); Globulin, Blood 4.2 g/dL (2.2-4.0); Glomerular Filtration Rate >60 (60-); Glucose, Blood 284 mg/dL (70-99); Potassium, Blood 3.7 mmol/L (3.5-5.5); Sodium, Blood 136 mmol/L (136-145); Total Protein, Blood 7.3 g/dL (6.4-8.2); Troponin I <0.015 ng/mL (0.000-0.040)
[2021-02-09] MEDS ORDERED: FUROSEMIDE40 MG PO (12:10)
[2021-02-09 13:58] LABS: SARS-Cov-2 (COVID-19) PCR, MMC NEGATIVE (NEGATIVE)
--- NOTE | 2021-02-09 15:08 | NUR ---
02/09/21 1508 Hermes Bernstein ON SCHEDULED ZOSYN 3.375 AT 1237
--- NOTE | 2021-02-09 17:12 | NUR ---
PT ARRIVED TO UNIT AT APROX 1645 FROM PACU. PT WITH LAP SITES X'S 3 C/D/I, ERA SITE TO RUQ DRAINING SANGUINOUS LIQUID. PT C/O 11/21 PAIN MEDICATED WITH 0.5MG DILAUDID. PT GIVEN CLEAR LIQUIDS, WILL ADVANCE TOLERATED.
--- NOTE | 2021-02-09 20:37 | NUR ---
I NOTIFED BOTH DR WHITE AND DR MATOS OF MY INITIAL ASSESSMENT OF THIS PT.INCLUDING VS,QUIVERING ABD, ERA OUTPUT AMNT AND COLOR,PT BASELINE TAKES LASIX AT HOME AND LISINOPRIL.DR MATOS VERB WOULD BE ORDERING MEDS.
[2021-02-10 04:14] LABS: Hematocrit 34.7 % (37.0-53.0); Hemoglobin 11.4 g/dL (13.5-17.5); Mean Corpuscular HGB 28.8 pg (26.0-34.0); Mean Corpuscular HGB Conc 32.9 g/dL (31.5-36.5); Mean Corpuscular Volume 88 fL (80-100); Mean Platelet Volume 10.6 fL (9.1-12.4); Platelet Count 239 K/mm3 (150-400); RDW Standard Deviation 48.5 fL (35.1-46.3); Red Blood Cell Count 3.96 M/mm3 (4.30-5.90); White Blood Cell Count 13.98 K/mm3 (4.00-11.30)
[2021-02-10 04:31] LABS: Anion Gap 4 mmol/L (6-16); Blood Urea Nitrogen 19 mg/dL (8-24); Bun/Creatinine Ratio 18.6 (12.0-20.0); CO2, Blood 27 mmol/L (21-32); Calcium, Blood 8.7 mg/dL (8.5-10.1); Chloride, Blood 104 mmol/L (98-108); Creatinine, Blood 1.02 mg/dL (0.60-1.20); Glomerular Filtration Rate >60 (60-); Glucose, Blood 264 mg/dL (70-99); Potassium, Blood 4.1 mmol/L (3.5-5.5); Sodium, Blood 135 mmol/L (136-145)
--- NOTE | 2021-02-10 07:44 | NUR ---
SUMMARY PT VS IMPROVED. PT REPORTED NO FURTHER SOB. SAT ON EDGE OF BED.TAKING PERCOCET FOR PAIN. PT IS TAKING PERCOCET APPROX Q 4 HRS, DISCUSSED POSSIBILITY OF PT TAKING OXYCODONE WTIHOUT THE TYLENOL ? DAY RN AGREES TO FOLLOW UP.
--- NOTE | 2021-02-10 18:43 | NUR ---
PT HAS BEEN STABLE THIS SHIFT. PT HAD 120CC DARK RED DRAINAGE FROM ERA. LAP SITES CDI. PT ABLE TO SIT AT SIDE OF BED BUT IS CHAIRBOUND AT BASELINE AND LACKS PROSTHETIC TO AMBULATE. PT REMAINS TACHYCARDIC AT TIMES IN THE LOW 100'S. PT PAIN MINIMAL, OXYCODONE EFFECTIVE. PT PASSING OCCASIONAL FLATUS. ABD DISTENDED. PT USES CALL LIGHT APPROPRIATELY PRN.
--- NOTE | 2021-02-11 06:45 | NUR ---
LYING IN SEMI FOWLERS WITH EYES CLOSED. HAS BEEN PLEASANT AND COOPERATIVE WITH CARE. ABD LAP SITES REMAIN C/D/I. ERA DRAIN TO RIGHT UPPER QUAD IS PATENT, DRAINIING SANGUINOUS FLUID. RIGHT BKA [place], SEVERAL TOES ON LEFT FOOT AMPUTATED. CHAIR BOUD AT BASELINE. PAIN MANAGED WITH PERCOCET PRN. DENIES FURTHER NEEDS OR WANTS AT THIS TIME. SAFETY MEASURES IN PLACE. WILL GIVE HAND OFF TO ONCOMING SHIFT USIING SBAR DURING BEDSIDE REPORT.
--- NOTE | 2021-02-11 17:32 | NUR ---
SHIFT SUMMARY PT IS POD# [address] FROM [facility] [place] WITH [address]. WHITE. ERA DRAIN REMAINS IN PLACE AND CONTINUES TO DRAIN DARK ARIC/BROWN FLUID. PT IS ABLE TO REPOSITION HIMSELF IN BED AND SIT UP TO THE EDGE OF THE BED. PT REPORTS HE CAN TRANSFER TO A WHEELCHAIR AT BASELINE BUT IS UNABLE TO WALK R/T R BKA AND ISSUES WITH PROSTHETIC LIMB. PT REPORTS HE SITS IN HIS WHEELCHAIR MOST OF THE TIME AT HOME. THIS RN ENCOURAGED PT TO HAVE FAMILY BRING HIS WHEELCHAIR FOR COMFORT AND TO INCREASE HIS MOBILITY. PT REPORTS HE HAS PASSED FLATUS POST-OP. PAIN HAS BEEN MANAGED WITH PO PAIN MEDICATION. PT HAS MINIMAL PAIN BUT IT IS SUDDEN AND INTENSE WHEN IT STARTS. PT REPORTS INCREASED PAIN WITH MOVEMENT AND DEEP BREATHING. VSS. WILL MONITOR UNTIL NOC RN.
[2021-02-12 04:08] LABS: BASOPHILS ABSOLUTE AUTO 0.03 K/mm3 (0.00-0.23); BASOPHILS PERCENT AUTO 0 % (0-2); EOSINOPHILS ABSOLUTE AUTO 0.38 K/mm3 (0.00-0.68); EOSINOPHILS PERCENT AUTO 5 % (0-6); Hematocrit 33.7 % (37.0-53.0); Hemoglobin 10.9 g/dL (13.5-17.5); IMMATURE GRAN ABSOLUTE AUTO 0.04 K/mm3 (0.00-0.10); IMMATURE GRAN PERCENT AUTO 1 % (0-1); LYMPHOCYTES ABSOLUTE AUTO 1.36 K/mm3 (0.84-5.20); LYMPHOCYTES PERCENT AUTO 16 % (21-46); MONOCYTES ABSOLUTE AUTO 0.89 K/mm3 (0.16-1.47); MONOCYTES PERCENT AUTO 11 % (4-13); Mean Corpuscular HGB 28.9 pg (26.0-34.0); Mean Corpuscular HGB Conc 32.3 g/dL (31.5-36.5); Mean Corpuscular Volume 89 fL (80-100); Mean Platelet Volume 10.5 fL (9.1-12.4); NEUTROPHILS ABSOLUTE AUTO 5.77 K/mm3 (1.96-9.15); NEUTROPHILS PERCENT AUTO 68 % (41-73); Platelet Count 284 K/mm3 (150-400); RDW Coefficient Variation 14.7 % (11.7-14.2); RDW Standard Deviation 48.9 fL (35.1-46.3); Red Blood Cell Count 3.77 M/mm3 (4.30-5.90); White Blood Cell Count 8.47 K/mm3 (4.00-11.30)
--- NOTE | 2021-02-12 04:13 | NUR ---
SITTING ON EDGE OF BED DANGLING LEGS WHILE WATCHING TV. HAS BEEN PLEASANT AND COOPERATIVE WITH CARE. ABD LAP SITES REMAIN C/D/I. ERA DRAIN TO RIGHT UPPER QUAD IS PATENT, DRAINIING SANGUINOUS FLUID. RIGHT BKA HEALED, SEVERAL TOES ON LEFT FOOT AMPUTATED. CHAIR BOUND AT BASELINE. PAIN MANAGED WITH PERCOCET PER EMAR. DENIES PAIN, DISCOMFORT, OR FURTHER NEEDS/WANTS AT THIS TIME. SAFETY MEASURES IN PLACE. WILL GIVE HAND OFF TO ONCOMING SHIFT USIING SBAR DURING BEDSIDE REPORT.
[2021-02-12 04:36] LABS: Alanine Aminotransfer (ALT/SGP 19 U/L (12-78); Albumin, Blood 2.2 g/dL (3.4-5.0); Albumin/Globulin Ratio 0.5 (0.8-1.8); Alk Phos 103 U/L (50-136); Anion Gap 4 mmol/L (6-16); Aspartate Aminotrans (AST/SGOT 9 U/L (12-37); Bilirubin, Total 0.5 mg/dL (0.1-1.0); Blood Urea Nitrogen 19 mg/dL (8-24); Bun/Creatinine Ratio 21.5 (12.0-20.0); CO2, Blood 31 mmol/L (21-32); Calcium, Blood 9.1 mg/dL (8.5-10.1); Chloride, Blood 102 mmol/L (98-108); Creatinine, Blood 0.88 mg/dL (0.60-1.20); Globulin, Blood 4.2 g/dL (2.2-4.0); Glomerular Filtration Rate >60 (60-); Glucose, Blood 197 mg/dL (70-99); Magnesium, Blood 1.8 mg/dL (1.6-2.4); Phosphorus, Blood 2.3 mg/dL (2.5-4.9); Potassium, Blood 3.6 mmol/L (3.5-5.5); Sodium, Blood 137 mmol/L (136-145); Total Protein, Blood 6.4 g/dL (6.4-8.2)
--- NOTE | 2021-02-12 07:00 | NUR ---
Patient gave me permission to be his student nurse for the day.
--- NOTE | 2021-02-12 15:10 | NUR ---
CALLED THE HOSPITALIST TO REPORT ELEVATED BP'S; NO NEW ORDERS RECIEVED.
--- NOTE | 2021-02-12 17:09 | NUR ---
SHIFT SUMMARY LAP JAYLIN POD 3. A&OX4. RA. SITS UP AND DANGLES LEGS OFF EDGE OF BED. W/C BOUND AT BASELINE. ABD LAP SITES X3 D&I. ERA DRAIN TO RUQ IS PATENT, DRAINAGE IS SS. BP'S TODAY HAVE BEEN ELEVATED- PT MEDICATED PER EMAR, HOSPITALIST AWARE. DENIES PAIN, DISCOMFORT, OR FURTHER NEEDS AT THIS TIME. SAFETY MEASURES IN PLACE. WILL REPORT TO SABINA COOK.
--- NOTE | 2021-02-13 04:12 | NUR ---
SHIFT SUMMARY PT A&O & IN PLEASENT MOOD T/O SHIFT. POD 4 LAP CHOLEY. LAP SITE D/I. ERA DRAIN TO RUQ, DRAINING SS FLUID. PT SLEPT T/O MOST OF NIGHT. BT PRESENT IN ALL 4 Q'S. TOLERATING PO INTAKE WELL, VOIDING. CALL LIGHT W/IN REACH. DENIES PAIN T/O SHIFT.
[2021-02-13] MEDS ORDERED: AMLO5 PO (11:09)
[2021-02-13] MEDS ORDERED: DOCU100 PO (11:10)
[2021-02-13] MEDS ORDERED: MIRALAX17 G3 PO (11:10)
[2021-02-13] MEDS ORDERED: SENNA LAXATIVE8.6 MG PO (11:11)
[2021-02-13] MEDS ORDERED: OXYACE7.5T PO (11:15)
--- NOTE | 2021-02-13 12:43 | NUR ---
DISCHARGE SUMMARY PT A&OX4, VSS/RA, MARCELL PO, VOIDING WELL/URINAL, REPOSITIONS WELL/TRANSFER TO WC. DC INSTRUCTIONS PROVIDED; PT REP UNDERSTANDING THOSE INSTRUCTIONS INCLUDING ERA DRAIN EMPTYING AND RECORDING FOR SURGEON APPT IN 1 WEEK, OK TO SHOWER/NO TUB/[id number]. LEFT FLOOR VIA WC TO GO HOME WITH FAMILY, WITH DC PACKET AND NARC SCRIPT; SCRIPTS FAXED TO [facility]. IV DC'D.
== END 2021-02-13 11:46 | disposition home or self-care (01) | DRG 418 ==
LOC: ER 11:08 → SURS 11:09 → ER 12:56 → SURS 16:36
PROVIDERS: Emergency Medicine; Internal Medicine; ADMIT Surgery
PROC: 0FT44ZZ Resection of Gallbladder, Percutaneous Endoscopic Approach (ICD-10-PCS; principal; 2021-02-09 13:30)
DX: K80.00 Calculus of gallbladder with acute cholecystitis without obstruction (principal); Z68.41 Body mass index [BMI] 40.0-44.9, adult; E66.01 Morbid (severe) obesity due to excess calories; L97.509 Non-pressure chronic ulcer of other part of unspecified foot with unspecified severity; I10 Essential (primary) hypertension; Z20.822 Contact with and (suspected) exposure to COVID-19; G89.29 Other chronic pain; K59.00 Constipation, unspecified; F17.210 Nicotine dependence, cigarettes, uncomplicated; E10.621 Type 1 diabetes mellitus with foot ulcer; E10.42 Type 1 diabetes mellitus with diabetic polyneuropathy; K82.A1 Gangrene of gallbladder in cholecystitis; M54.9 Dorsalgia, unspecified; Z28.21 Immunization not carried out because of patient refusal; Z86.14 Personal history of Methicillin resistant Staphylococcus aureus infection; Z89.412 Acquired absence of left great toe; Z89.411 Acquired absence of right great toe; Z89.431 Acquired absence of right foot; Z89.511 Acquired absence of right leg below knee; Z79.899 Other long term (current) drug therapy; Z79.84 Long term (current) use of oral hypoglycemic drugs; Z79.82 Long term (current) use of aspirin; Z71.3 Dietary counseling and surveillance
CPT/HCPCS: 36415; 80048; 80053; 82947; 83690; 83735; 84100; 84484; 85025; 85027; 87086; 88304; 93005; 93010; 94760; 96374; 96375; 99285; A9270; G0378; J1170; J1650; J1815; J1885; J1940; J2250; J2370; J2405; J2543; J2704; J2765; J3010; J7030; J7120; U0004

== ENCOUNTER 2022-09-20 03:09 | Day surgery (SDC) | payer OTHER ==
[~2022-09-20 03:09] MED LIST changes: +AMLO5 PO; +BASAGLAR K100 UNIT/1 SC; +CATAPRES0.3 MG PO; +FUROSEMIDE40 MG PO; +LACT10SY PO; +MIRALAX17 G3 PO; +OXYACE7.5T PO; +SENNA LAXATIVE8.6 MG PO
== END 2022-09-20 23:00 | disposition home or self-care (01) ==
LOC: WOUND 03:09
DX: I87.2 Venous insufficiency (chronic) (peripheral) (principal); L97.829 Non-pressure chronic ulcer of other part of left lower leg with unspecified severity; L03.116 Cellulitis of left lower limb; E11.622 Type 2 diabetes mellitus with other skin ulcer; E11.51 Type 2 diabetes mellitus with diabetic peripheral angiopathy without gangrene; E11.42 Type 2 diabetes mellitus with diabetic polyneuropathy; Z79.4 Long term (current) use of insulin; I10 Essential (primary) hypertension; F17.210 Nicotine dependence, cigarettes, uncomplicated; E78.5 Hyperlipidemia, unspecified
CPT/HCPCS: 99406; G0463

== ENCOUNTER 2022-09-27 01:10 | Day surgery (SDC) | payer OTHER | END 2022-09-27 23:08 | disposition home or self-care (01) | LOC: WOUND 01:10 | DX: E11.622 Type 2 diabetes mellitus with other skin ulcer (principal); I87.2 Venous insufficiency (chronic) (peripheral); E11.51 Type 2 diabetes mellitus with diabetic peripheral angiopathy without gangrene; E11.42 Type 2 diabetes mellitus with diabetic polyneuropathy; Z79.4 Long term (current) use of insulin; Z72.0 Tobacco use | CPT/HCPCS: 99406; G0463 ==

== ENCOUNTER 2022-10-04 02:15 | Day surgery (SDC) | payer OTHER | END 2022-10-04 23:12 | disposition home or self-care (01) | LOC: WOUND 02:15 | DX: L03.116 Cellulitis of left lower limb (principal); L97.929 Non-pressure chronic ulcer of unspecified part of left lower leg with unspecified severity; E11.622 Type 2 diabetes mellitus with other skin ulcer; L97.821 Non-pressure chronic ulcer of other part of left lower leg limited to breakdown of skin; I87.312 Chronic venous hypertension (idiopathic) with ulcer of left lower extremity; I87.2 Venous insufficiency (chronic) (peripheral); I73.9 Peripheral vascular disease, unspecified; E11.59 Type 2 diabetes mellitus with other circulatory complications; E11.42 Type 2 diabetes mellitus with diabetic polyneuropathy; Z79.4 Long term (current) use of insulin; Z72.0 Tobacco use | CPT/HCPCS: 99406; G0463 ==

== ENCOUNTER 2022-10-18 01:10 | Day surgery (SDC) | payer OTHER | END 2022-10-18 22:43 | disposition home or self-care (01) | LOC: WOUND 01:10 | DX: L03.116 Cellulitis of left lower limb (principal); I87.312 Chronic venous hypertension (idiopathic) with ulcer of left lower extremity; L97.929 Non-pressure chronic ulcer of unspecified part of left lower leg with unspecified severity; E11.622 Type 2 diabetes mellitus with other skin ulcer; L97.821 Non-pressure chronic ulcer of other part of left lower leg limited to breakdown of skin; I87.2 Venous insufficiency (chronic) (peripheral); I73.9 Peripheral vascular disease, unspecified; E11.59 Type 2 diabetes mellitus with other circulatory complications; E11.42 Type 2 diabetes mellitus with diabetic polyneuropathy; Z79.4 Long term (current) use of insulin; Z72.0 Tobacco use | CPT/HCPCS: 99406; G0463 ==

== ENCOUNTER 2022-10-25 04:03 | Day surgery (SDC) | payer OTHER | END 2022-10-25 22:36 | disposition home or self-care (01) | LOC: WOUND 04:03 | DX: E11.622 Type 2 diabetes mellitus with other skin ulcer (principal); L97.821 Non-pressure chronic ulcer of other part of left lower leg limited to breakdown of skin; I87.312 Chronic venous hypertension (idiopathic) with ulcer of left lower extremity; E11.51 Type 2 diabetes mellitus with diabetic peripheral angiopathy without gangrene; I87.2 Venous insufficiency (chronic) (peripheral); E11.42 Type 2 diabetes mellitus with diabetic polyneuropathy; Z79.4 Long term (current) use of insulin; Z72.0 Tobacco use | CPT/HCPCS: G0463 ==

== ENCOUNTER 2022-11-01 05:20 | Day surgery (SDC) | payer OTHER | END 2022-11-01 22:43 | disposition home or self-care (01) | LOC: WOUND 05:20 | DX: Z48.00 Encounter for change or removal of nonsurgical wound dressing (principal); Z72.0 Tobacco use; Z89.421 Acquired absence of other right toe(s); Z86.73 Personal history of transient ischemic attack (TIA), and cerebral infarction without residual deficits | CPT/HCPCS: 99406; G0463 ==

== ENCOUNTER 2023-07-31 11:02 | Day surgery (SDC) | payer OTHER ==
[~2023-07-31] VITALS: Ht 190.5 cm; Wt 136.1 kg
[~2023-07-31 11:02] MED LIST changes: +ATOR80 PO
[2023-07-31 11:46] VITALS: BP 151/92
--- NOTE | 2023-07-31 11:55 | NUR ---
Myra DOBBS FOUND W/ ALEC.
[2023-07-31] MEDS ORDERED: NS 250 ML IV ONE ×2 (12:58→14:52)
[2023-07-31] MEDS ORDERED: NS 100 ML IV ONE ×2 (12:58→13:42)
[2023-07-31] MEDS ORDERED: Heparin Sodium 1000 Units/ML 10ML MDV ONE ×3 (12:58→14:52)
[2023-07-31] MEDS ORDERED: NS 1,000 ML IV ONE ×2 (12:58→13:47)
[2023-07-31] MEDS ORDERED: Midazolam HCl 1MG / ML 2ML Vial ONE (14:11)
[2023-07-31] MEDS ORDERED: FentaNYL Citrate 50 MCG/ML 2 ML Injection ONE ×3 (14:11→15:47)
[2023-07-31] MEDS ORDERED: HydrALAZINE HCl 20 MG / ML 1ML Vial ONE (15:05)
[2023-07-31] MEDS ORDERED: Bisacodyl 10 MG Supp PR PRN (15:40)
[2023-07-31 15:45] VITALS: BP 170/110
[2023-07-31] MEDS ORDERED: Ondansetron 4 MG TAB PO PRN (15:45)
[2023-07-31] MEDS ORDERED: Prochlorperazine Edisylate 10 mg Vial IV PRN (15:45)
[2023-07-31] MEDS ORDERED: Magnesium Hydroxide Conc 10 ML UDC PO PRN (15:45)
[2023-07-31] MEDS ORDERED: Ondansetron HCl 2 MG / ML 2ML Vial IV PRN (15:45)
[2023-07-31] MEDS ORDERED: Prochlorperazine Maleate 5 MG Tab PO PRN (15:45)
[2023-07-31] MEDS ORDERED: Melatonin 3 MG Tab PO PRN (15:45)
[2023-07-31] MEDS ORDERED: FentaNYL Citrate 50 MCG/ML 2 ML Injection IV PRN (15:50)
--- NOTE | 2023-07-31 17:53 | NUR ---
[facility]ARE [facility], RIGHT GROIN SITE WITH ANGIO SEAL. ARRIVES ON GURNEY YELLING THAT CAN'T LAY FLAT AND BACK HURTS. DIFFICULT TO CONSOLE. ADJITATED AND TRYING TO MOVE AROUND ON BED. MEDICATED PER ORDERS WITH FENTANYL IVP, SEEMED TO HELP FOR APPROX 1 HOUR THEN MEDICATED AGAIN. DISPITE EDUCATION ON HOLDING STILL AND NOT SITTING UP OR BENDING KNEES DOES MINIMALLY FOLLOWS INSTRUCTIONS. OK TO LAY ON SIDE PER DR. ALMONTE, TOLERATED FOR APPROX 1 HOUR THEN INCLINED BED TO 35 DEGREES, SITE REMAINS SOFT WITH NO S/SX OF HEMATOMA OR BLEEDING. AT 2 HOURS POST PROCEDURE STATES CANNOT LAY ANYMORE AND SITS IN BED AT ALMOST 90 DEGREES TO EAT DINNER. SITE REMAINS SOFT AND NO BLEEDING NOTED. DISCHARGE PAPERWORK COMPLETE WILL CONTINUE TO MONITOR AND TREAT UNTIL ARRIVES TO DC TO HOME.
[2023-07-31] MEDS ORDERED: CLOP75 PO (18:00)
[2023-07-31] MEDS ORDERED: Insulin Glargine-Yfgn 100 Unit/mL 3 ML SYR SC SCH (18:00)
[2023-07-31] MEDS ORDERED: CloNIDine 0.3 MG Tab PO SCH (21:00)
[2023-07-31] MEDS ORDERED: Docusate Sodium 100 MG Cap PO SCH (21:00)
[2023-08-01] MEDS ORDERED: Insulin Glargine-Yfgn 100 Unit/mL 3 ML SYR SC SCH (09:00)
[2023-08-01] MEDS ORDERED: Atorvastatin 40 MG Tab PO SCH (09:00)
[2023-08-01] MEDS ORDERED: Aspirin 81 MG TabEC PO SCH (09:00)
[2023-08-01] MEDS ORDERED: Lisinopril 20 MG Tab PO SCH (09:00)
[2023-08-01] MEDS ORDERED: AmLODIPine Besylate 5 MG Tab PO SCH (09:00)
[2023-08-01] MEDS ORDERED: Potassium Chloride 10 Meq Tablet SA PO SCH (09:00)
[2023-08-01] MEDS ORDERED: Furosemide 40 MG Tab PO SCH (14:00)
== END 2023-07-31 19:32 | disposition home or self-care (01) ==
LOC: MHTC 11:02 → PCU 15:20 → MHTC 19:32
PROC: 047Q3Z1 Dilation of Left Anterior Tibial Artery using Drug-Coated Balloon, Percutaneous Approach (ICD-10-PCS; principal; 2023-07-31)
DX: E11.51 Type 2 diabetes mellitus with diabetic peripheral angiopathy without gangrene (principal); I21.3 ST elevation (STEMI) myocardial infarction of unspecified site; I10 Essential (primary) hypertension; E78.5 Hyperlipidemia, unspecified; F17.210 Nicotine dependence, cigarettes, uncomplicated; Z86.73 Personal history of transient ischemic attack (TIA), and cerebral infarction without residual deficits; Z89.511 Acquired absence of right leg below knee; Z79.4 Long term (current) use of insulin; Z79.899 Other long term (current) drug therapy; Z79.82 Long term (current) use of aspirin; Z79.84 Long term (current) use of oral hypoglycemic drugs; Z89.411 Acquired absence of right great toe
CPT/HCPCS: 37228; 75625; 75716; 75774; 76937; 82947; 99152; 99153; C1725; C1760; C1769; C1887; C1894; J0360; J1644; J1815; J2250; J3010; J7030; J7050; Q9967

== ENCOUNTER 2024-03-09 16:48 | Inpatient (IN) | payer OTHER ==
[~2024-03-09] VITALS: Ht 190.5 cm; Wt 118.0 kg
[~2024-03-09 16:48] MED LIST changes: +CLOP75 PO; +Glucophage 850850 MG PO; +SILVADENE20 G8 TP
[2024-03-09 17:44] LABS: Base Excess Venous 3.8 mmol/L; Bicarbonate Venous 26.4 mmol/L (24.0-30.0); PCO2 Venous 48.7 mmHg (38-42); pH Blood Venous 7.38 (7.34-7.37)
[2024-03-09 17:57] LABS: BASOPHILS ABSOLUTE AUTO 0.09 K/mm3 (0.00-0.23); BASOPHILS PERCENT AUTO 0 % (0-2); EOSINOPHILS ABSOLUTE AUTO 0.15 K/mm3 (0.00-0.68); EOSINOPHILS PERCENT AUTO 1 % (0-6); Hematocrit 34.4 % (37.0-53.0); Hemoglobin 11.5 g/dL (13.5-17.5); IMMATURE GRAN ABSOLUTE AUTO 0.18 K/mm3 (0.00-0.10); IMMATURE GRAN PERCENT AUTO 1 % (0-1); LYMPHOCYTES ABSOLUTE AUTO 1.37 K/mm3 (0.84-5.20); LYMPHOCYTES PERCENT AUTO 7 % (21-46); MONOCYTES ABSOLUTE AUTO 1.86 K/mm3 (0.16-1.47); MONOCYTES PERCENT AUTO 9 % (4-13); Mean Corpuscular HGB 29.9 pg (26.0-34.0); Mean Corpuscular HGB Conc 33.4 g/dL (31.5-36.5); Mean Corpuscular Volume 89 fL (80-100); Mean Platelet Volume 10.5 fL (9.1-12.4); NEUTROPHILS ABSOLUTE AUTO 16.46 K/mm3 (1.96-9.15); NEUTROPHILS PERCENT AUTO 82 % (41-73); Platelet Count 489 K/mm3 (150-400); RDW Coefficient Variation 12.5 % (11.7-14.2); RDW Standard Deviation 41.1 fL (35.1-46.3); Red Blood Cell Count 3.85 M/mm3 (4.30-5.90); White Blood Cell Count 20.11 K/mm3 (4.00-11.30)
[2024-03-09 18:14] LABS: Albumin, Blood 2.3 g/dL (3.4-5.0); Albumin/Globulin Ratio 0.5 (0.8-1.8); Beta-hydroxybutyrate 13.2 mg/dL (0.2-2.8); Bilirubin, Total 0.8 mg/dL (0.1-1.0); Bun/Creatinine Ratio 24.8 (12.0-20.0); Calcium, Blood 9.6 mg/dL (8.5-10.1); Creatinine, Blood 1.29 mg/dL (0.60-1.20); Globulin, Blood 4.4 g/dL (2.2-4.0); Potassium, Blood 4.3 mmol/L (3.5-5.5); Total Protein, Blood 6.7 g/dL (6.4-8.2)
[2024-03-09] MEDS ORDERED: Piperacillin/Tazobactam Sod 3.375 GM in NS 100 ML IV ONE (18:45)
[2024-03-09] MEDS ORDERED: Acetaminophen 500 MG Tab PO ONE ×2 (18:45→20:25)
[2024-03-09] MEDS ORDERED: FentaNYL Citrate 50 MCG/ML 2 ML Injection IV ONE (18:45)
[2024-03-09] MEDS ORDERED: Vancomycin HCL 2,000 MG in NS 520 ML IV ONE (18:45)
[2024-03-09] MEDS ORDERED: Lactated Ringer's 1,000 ML IV SCH (18:50)
[2024-03-09 18:52] LABS: Source, Urine Foley catheter
[2024-03-09 18:56] LABS: Appearance, Urine Clear (Clear); Bilirubin, Urine Neg (Neg); Blood, Urine 2+ (Neg); Color, Urine Yellow (P-Yellow); Glucose Qualitative, Urine 4+ (Neg); Ketones, Urine 1+ (Neg); Leukocyte Esterase, Urine Neg (Neg); Nitrite, Urine Neg (Neg); Protein, Urine 3+ (Neg); Urobilinogen, Urine 1+ (Normal)
[2024-03-09 19:02] LABS: Bacteria Few /hpf; Red Blood Cells, Urine 0-2 /hpf (0-2); Squamous Epithelial Cells Few /hpf (Few); White Blood Cells, Urine 0-2 /hpf (0-5)
[2024-03-09] MEDS ORDERED: FUROSEMIDE40 MG PO (23:40)
[2024-03-09] MEDS ORDERED: AmLODIPine Besylate 5 MG Tab PO ONE (23:55)
[2024-03-09] MEDS ORDERED: Insulin Glargine-Yfgn 100 Unit/mL 3 ML SYR SC ONE (23:55)
[2024-03-10] MEDS ORDERED: Ondansetron 4 MG TAB PO PRN (00:15)
[2024-03-10] MEDS ORDERED: Metoclopramide HCl 5MG / ML 2ML Vial IV PRN (00:15)
[2024-03-10] MEDS ORDERED: FLU VACC TS2024-25(6MOS UP)/PF 45 MCG/0.5 ML SYRINGE IM ONE (00:20)
[2024-03-10] MEDS ORDERED: Piperacillin/Tazobactam Sod 3.375 GM in NS 100 ML IV SCH ×2 (00:35→06:00)
[2024-03-10 00:40] LABS: Albumin, Blood 2.2 g/dL (3.4-5.0); Albumin/Globulin Ratio 0.6 (0.8-1.8); Bilirubin, Total 0.9 mg/dL (0.1-1.0); Bun/Creatinine Ratio 26.5 (12.0-20.0); Calcium, Blood 9.5 mg/dL (8.5-10.1); Creatinine, Blood 1.02 mg/dL (0.60-1.20); Globulin, Blood 3.9 g/dL (2.2-4.0); Potassium, Blood 4.1 mmol/L (3.5-5.5); Total Protein, Blood 6.1 g/dL (6.4-8.2)
[2024-03-10] MEDS ORDERED: NS 1,000 ML IV SCH (01:00)
[2024-03-10 03:01] LABS: Bun/Creatinine Ratio 25.7 (12.0-20.0); Calcium, Blood 8.9 mg/dL (8.5-10.1); Creatinine, Blood 0.93 mg/dL (0.60-1.20); Potassium, Blood 3.8 mmol/L (3.5-5.5)
[2024-03-10] MEDS ORDERED: Vancomycin HCL 1,250 MG in NS 250 ML IV SCH (06:00)
[2024-03-10] MEDS ORDERED: Vancomycin HCL 1,500 MG in NS 250 ML IV SCH (06:00)
[2024-03-10 06:30] LABS: Albumin, Blood 2.1 g/dL (3.4-5.0); Albumin/Globulin Ratio 0.5 (0.8-1.8); Bun/Creatinine Ratio 27.5 (12.0-20.0); Calcium, Blood 9.2 mg/dL (8.5-10.1); Creatinine, Blood 0.8 mg/dL (0.60-1.20); Globulin, Blood 3.9 g/dL (2.2-4.0); Potassium, Blood 4.6 mmol/L (3.5-5.5)
[2024-03-10 06:40] LABS: BASOPHILS ABSOLUTE AUTO 0.08 K/mm3 (0.00-0.23); BASOPHILS PERCENT AUTO 0 % (0-2); EOSINOPHILS PERCENT AUTO 1 % (0-6); Hematocrit 33.4 % (37.0-53.0); Hemoglobin 11.4 g/dL (13.5-17.5); IMMATURE GRAN ABSOLUTE AUTO 0.13 K/mm3 (0.00-0.10); IMMATURE GRAN PERCENT AUTO 1 % (0-1); LYMPHOCYTES ABSOLUTE AUTO 1.19 K/mm3 (0.84-5.20); LYMPHOCYTES PERCENT AUTO 6 % (21-46); MONOCYTES ABSOLUTE AUTO 1.54 K/mm3 (0.16-1.47); MONOCYTES PERCENT AUTO 8 % (4-13); Mean Corpuscular HGB 30.4 pg (26.0-34.0); Mean Corpuscular HGB Conc 34.1 g/dL (31.5-36.5); Mean Corpuscular Volume 89 fL (80-100); Mean Platelet Volume 10.3 fL (9.1-12.4); NEUTROPHILS ABSOLUTE AUTO 17.52 K/mm3 (1.96-9.15); NEUTROPHILS PERCENT AUTO 85 % (41-73); Platelet Count 458 K/mm3 (150-400); RDW Coefficient Variation 12.5 % (11.7-14.2); RDW Standard Deviation 41.1 fL (35.1-46.3); Red Blood Cell Count 3.75 M/mm3 (4.30-5.90); White Blood Cell Count 20.66 K/mm3 (4.00-11.30)
[2024-03-10] MEDS ORDERED: Lisinopril 20 MG Tab PO SCH (09:00)
[2024-03-10] MEDS ORDERED: Enoxaparin 40 MG/0.4 ML SYR SC SCH (09:00)
[2024-03-10] MEDS ORDERED: Clopidogrel Bisulfate 75 MG Tab PO SCH (09:00)
[2024-03-10] MEDS ORDERED: AmLODIPine Besylate 5 MG Tab PO SCH (09:00)
[2024-03-10] MEDS ORDERED: Aspirin 81 MG TabEC PO SCH (09:00)
[2024-03-10] MEDS ORDERED: Insulin Glargine-Yfgn 100 Unit/mL 3 ML SYR SC SCH ×2 (09:00→21:00)
[2024-03-10] MEDS ORDERED: Potassium Chloride 10 Meq Tablet SA PO SCH (09:00)
[2024-03-10] MEDS ORDERED: Atorvastatin 40 MG Tab PO SCH (09:00)
[2024-03-10] MEDS ORDERED: CloNIDine 0.3 MG Tab PO SCH (09:00)
[2024-03-10] MEDS ORDERED: Lactobacil 2-S.Thermo-Bifido 1 1 Cap PO SCH (09:00)
[2024-03-10 15:03] VITALS: BP 141/85
--- NOTE | 2024-03-10 15:32 | NUR ---
PT IS A&OX4, PT CAN BE HYPERTENSIVE AT TIME, ON TELE READING ST. AND ON RA. PT TAKES PILLS FINE. NO C/O PAIN. NO QUESTIONS OR CONCERNS AT THIS TIME
[2024-03-10] MEDS ORDERED: Insulin Human Lispro 100 Units/ML 3ML Syringe SC SCH (16:30)
--- NOTE | 2024-03-10 17:27 | NUR ---
PT IS RESTING COMFORTABLY. ANSWERS QUESTIONS APPROPRIATLY. AOX4. ELEVATED BP, MD IS AWARE AND BLOOD SUGAR REMAINS ELEVATED.
[2024-03-10 19:52] VITALS: BP 175/93
[2024-03-10 19:55] VITALS: BP 169/95
[2024-03-11 03:22] VITALS: BP 148/81
[2024-03-11] MEDS ORDERED: FentaNYL Citrate 50 MCG/ML 2 ML Injection IV PRN (03:55)
--- NOTE | 2024-03-11 04:53 | NUR ---
pT SLEPT SOME THIS SHIFT, SIGNIFICANT BACK PAIN WHICH THEN DEVELOPED TO BE PAIN IN ARMS, LEGS, HEAD, AND BACK. FENTANYL ADMINISTERED AND HELPFUL, PT NOTED TO HAVE SEVERAL AREAS OF SCABBING ON TOP OF HEAD, HAND, LLE, AND NOTED A SMALL OPEN AREA ON RIGHT BUTTOCKS, MEPILEX PLACED THERE, PHOTOS IN CHART. VS WNL, TELE ST IN 111. BG 249 AND RECIEVED 25 UNITS OF LANTUS NO SSI
[2024-03-11 05:11] LABS: Hematocrit 34.1 % (37.0-53.0); Hemoglobin 11.3 g/dL (13.5-17.5); Mean Corpuscular HGB 29.4 pg (26.0-34.0); Mean Corpuscular HGB Conc 33.1 g/dL (31.5-36.5); Mean Corpuscular Volume 89 fL (80-100); Mean Platelet Volume 9.7 fL (9.1-12.4); Platelet Count 470 K/mm3 (150-400); RDW Coefficient Variation 12.6 % (11.7-14.2); RDW Standard Deviation 41.1 fL (35.1-46.3); Red Blood Cell Count 3.84 M/mm3 (4.30-5.90); White Blood Cell Count 16.24 K/mm3 (4.00-11.30)
[2024-03-11 05:40] LABS: Anion Gap 9 mmol/L (3-11); Blood Urea Nitrogen 16 mg/dL (8-24); Bun/Creatinine Ratio 20.9 (12.0-20.0); CO2, Blood 29 mmol/L (21-32); Calcium, Blood 9.1 mg/dL (8.5-10.1); Chloride, Blood 109 mmol/L (98-108); Creatinine, Blood 0.77 mg/dL (0.60-1.20); Glomerular Filtration Rate 99 (60-); Glucose, Blood 191 mg/dL (70-99); Potassium, Blood 3.6 mmol/L (3.5-5.5); Sodium, Blood 143 mmol/L (136-145); Vancomycin, Trough 16.3 ug/mL (5.0-10.0)
--- NOTE | 2024-03-11 05:50 | NUR ---
PT HAD 11 BEAT RUN OF VTACH, SEE CHART FOR MD CHELI NOTIFIED NO CHANGES AWAITING LABS.
[2024-03-11] MEDS ORDERED: Potassium Chloride 20 MEQ TabCR PO ONE (07:40)
[2024-03-11 07:49] VITALS: BP 173/94
[2024-03-11] MEDS ORDERED: Furosemide 40 MG Tab PO SCH (09:00)
[2024-03-11] MEDS ORDERED: AmLODIPine Besylate 5 MG Tab PO SCH (09:00)
[2024-03-11] MEDS ORDERED: CeFAZolin Sodium 2,000 MG in NS 100 ML IV SCH (10:56)
[2024-03-11 15:32] VITALS: BP 124/74
--- NOTE | 2024-03-11 18:06 | NUR ---
SHIFT SUMMARY PT A&OX4 AND ANSWERS QUESTIONS APPROPRIATELY. PT SPENT MOST OF SHIFT RESTING IN BED. PT RECEIVED SCHEDULED AND PRN MEDICATIONS WITH NO ADVERSE REACTIONS. VSS, NO COMPLAINTS OF CP/PRESSURE OR SOB. NO ACUTE EVENTS AT THIS TIME. PT REPOSITIONED Q2HRS AND ATTENDS CHANGED PRN. FALL PRECAUTIONS IN PLACE AND CALL LIGHT IN REACH.
[2024-03-11 19:29] VITALS: BP 142/83
[2024-03-12] MEDS ORDERED: Miconazole Nitrate 2% 85 GM PWD TOP PRN (02:55)
[2024-03-12 03:32] VITALS: BP 127/59
[2024-03-12 05:49] LABS: Hematocrit 30.6 % (37.0-53.0); Hemoglobin 10.1 g/dL (13.5-17.5); Mean Corpuscular Volume 91 fL (80-100); Mean Platelet Volume 10.2 fL (9.1-12.4); Platelet Count 431 K/mm3 (150-400); RDW Coefficient Variation 12.6 % (11.7-14.2); RDW Standard Deviation 42.1 fL (35.1-46.3); Red Blood Cell Count 3.37 M/mm3 (4.30-5.90)
--- NOTE | 2024-03-12 06:13 | NUR ---
SHIFT SUMMARY PT A&Ox4. PT C/O PAIN IN BACK THAT IS CRONIC. MEDICATED PER EMAR WITH MODERATE EFFECT. MONROY IN PLACE. NO EVENTS ON TELE. ORDER GIVEN FOR MICONAZOLE POWDER FOR PANUS. VSS. BED IN LOWEST POSITION AND CALL LIGHT IN REACH.
[2024-03-12 06:30] LABS: Bun/Creatinine Ratio 16.2 (12.0-20.0); Calcium, Blood 8.7 mg/dL (8.5-10.1); Creatinine, Blood 0.8 mg/dL (0.60-1.20); Potassium, Blood 3.8 mmol/L (3.5-5.5)
[2024-03-12 07:50] VITALS: BP 132/62
[2024-03-12 09:27] VITALS: BP 143/77
[2024-03-12] MEDS ORDERED: Gabapentin 300 MG Cap PO SCH (09:44)
[2024-03-12] MEDS ORDERED: Lidocaine 4% 1 Patch TOP SCH (10:00)
[2024-03-12] MEDS ORDERED: LIDO700A20 TOP (12:26)
[2024-03-12] MEDS ORDERED: MICONAZOLE NITR85 GM TOP (12:29)
[2024-03-12] MEDS ORDERED: CEPH500 PO (12:29)
[2024-03-12] MEDS ORDERED: VISBIOME 112.51 EACH PO (12:29)
[2024-03-12] MEDS ORDERED: GABA300 PO (12:31)
[2024-03-12 13:36] LABS: CORONAVIRUS COVID-19 AG Negative (NEGATIVE)
--- NOTE | 2024-03-12 14:46 | NUR ---
NOTE CALLED TO GIVE REPORT ARSEN AT [facility]. PLAN IS PT TO BE TRANSFERED AT 1500.
--- NOTE | 2024-03-12 15:16 | NUR ---
DISCHARGE NOTE PT A&0X4. PT ADMITTED DUE TO L LOWER LEG CELLULITIS. PT REPORTS CHRONIC BACK PAIN. PT MEDICATED PER EMAR. PT HAS CHRONIC MONROY FOR RETENTION, DR. CUNNINGHAM NOTIFIED TO LEAVE IN MONROY. PT REPORTED NO S/S OF INFECTION. PT ATE ADEQUATE. PT HAS NO TEETH AND REPORTS NOT HAVING DENTURES. PT TOOK ALL PERSONAL ITEMS. PT EDUCATED ON DISCHARGE INSTRUCTIONS AND MEDS. TRANSPORT CAME, PT TRANSFERED TO WHEELCHAIR BY STAND PIVOT WITH GAIT BELT AND 2 ASSIST. PT IV D/C. PT GOT BED BATH TODAY, 6X6 DRESSING APPLIED TO LOWER LEFT LEG. MEPILEX REPLACED ON COCCYX. PT RECEIVED DOSE OF IV ANTIBIOTICS THIS AM. REPORT TO [facility] WAS GIVEN TO ARSEN. [facility]
== END 2024-03-12 15:38 | DRG 871 ==
LOC: ER 16:48 → ERHOLD 16:50 → ER 22:32 → ERHOLD 22:32 → ER 22:32 → ERHOLD 03-10 01:20 → MEDS 03-10 10:08 → ERHOLD 03-10 10:08 → MEDS 03-10 13:53
PROVIDERS: Emergency Medicine; Internal Medicine; Student in an Organized Health Care Education/Training Program; ADMIT Internal Medicine
PROC: 0T9B70Z Drainage of Bladder with Drainage Device, Via Natural or Artificial Opening (ICD-10-PCS; 2024-03-09)
PROC: 3E03329 Introduction of Other Anti-infective into Peripheral Vein, Percutaneous Approach (ICD-10-PCS; principal; 2024-03-10)
DX: A41.9 Sepsis, unspecified organism (principal); E11.00 Type 2 diabetes mellitus with hyperosmolarity without nonketotic hyperglycemic-hyperosmolar coma (NKHHC); G92.8 Other toxic encephalopathy; L03.317 Cellulitis of buttock; N17.9 Acute kidney failure, unspecified; L03.116 Cellulitis of left lower limb; E87.3 Alkalosis; E11.40 Type 2 diabetes mellitus with diabetic neuropathy, unspecified; N49.2 Inflammatory disorders of scrotum; G89.29 Other chronic pain; E11.621 Type 2 diabetes mellitus with foot ulcer; F17.210 Nicotine dependence, cigarettes, uncomplicated; I16.0 Hypertensive urgency; E11.51 Type 2 diabetes mellitus with diabetic peripheral angiopathy without gangrene; L97.529 Non-pressure chronic ulcer of other part of left foot with unspecified severity; M54.50 Low back pain, unspecified; B35.1 Tinea unguium; E86.0 Dehydration; E11.65 Type 2 diabetes mellitus with hyperglycemia; R06.00 Dyspnea, unspecified; Z79.82 Long term (current) use of aspirin; Z79.811 Long term (current) use of aromatase inhibitors; Z79.899 Other long term (current) drug therapy; Z79.4 Long term (current) use of insulin; Z79.84 Long term (current) use of oral hypoglycemic drugs; Z91.198 Patient's noncompliance with other medical treatment and regimen for other reason; Z90.49 Acquired absence of other specified parts of digestive tract; Z86.14 Personal history of Methicillin resistant Staphylococcus aureus infection; Z90.89 Acquired absence of other organs; Z89.412 Acquired absence of left great toe; Z89.411 Acquired absence of right great toe; Z89.431 Acquired absence of right foot; Z98.890 Other specified postprocedural states; Z68.37 Body mass index [BMI] 37.0-37.9, adult; Z28.89 Immunization not carried out for other reason; Z79.02 Long term (current) use of antithrombotics/antiplatelets; Z91.148 Patient's other noncompliance with medication regimen for other reason; Z89.422 Acquired absence of other left toe(s); T38.3X6A Underdosing of insulin and oral hypoglycemic [antidiabetic] drugs, initial encounter
CPT/HCPCS: 0241U; 36415; 51702; 71045; 72100; 73590; 76870; 80048; 80053; 80202; 81001; 82010; 82803; 82947; 83605; 83735; 83880; 84484; 85025; 85027; 87040; 87426-QW; 93005; 93010; 96365; 96365-59; 96366; 96366-59; 96367; 96368; 96375-59; 97110; 97161; 97166; 97530; 99285-25; A9270; G0378; J0690; J1650; J1815; J2543; J3010; J3370; J3475; J7030; J7040; J7050; J7120

== ENCOUNTER 2024-03-21 18:00 | Emergency (ER) | payer OTHER ==
[~2024-03-21] VITALS: Ht 190.5 cm; Wt 117.0 kg
[~2024-03-21 18:00] MED LIST changes: +LIDO700A20 TOP; +MICONAZOLE NITR85 GM TOP; +VISBIOME 112.51 EACH PO
[2024-03-21] MEDS ORDERED: HYDROmorphone HCl/Pf 1MG SYR IV ONE (18:35)
[2024-03-21 18:56] LABS: BASOPHILS ABSOLUTE AUTO 0.06 K/mm3 (0.00-0.23); BASOPHILS PERCENT AUTO 1 % (0-2); EOSINOPHILS ABSOLUTE AUTO 0.06 K/mm3 (0.00-0.68); EOSINOPHILS PERCENT AUTO 1 % (0-6); Hematocrit 32.6 % (37.0-53.0); Hemoglobin 10.9 g/dL (13.5-17.5); IMMATURE GRAN ABSOLUTE AUTO 0.06 K/mm3 (0.00-0.10); IMMATURE GRAN PERCENT AUTO 1 % (0-1); LYMPHOCYTES ABSOLUTE AUTO 0.64 K/mm3 (0.84-5.20); LYMPHOCYTES PERCENT AUTO 8 % (21-46); MONOCYTES ABSOLUTE AUTO 0.82 K/mm3 (0.16-1.47); MONOCYTES PERCENT AUTO 10 % (4-13); Mean Corpuscular HGB 29.9 pg (26.0-34.0); Mean Corpuscular HGB Conc 33.4 g/dL (31.5-36.5); Mean Corpuscular Volume 89 fL (80-100); Mean Platelet Volume 9.8 fL (9.1-12.4); NEUTROPHILS ABSOLUTE AUTO 6.25 K/mm3 (1.96-9.15); NEUTROPHILS PERCENT AUTO 79 % (41-73); Platelet Count 488 K/mm3 (150-400); RDW Standard Deviation 41.9 fL (35.1-46.3); Red Blood Cell Count 3.65 M/mm3 (4.30-5.90); White Blood Cell Count 7.89 K/mm3 (4.00-11.30)
[2024-03-21 19:07] LABS: Albumin, Blood 2.2 g/dL (3.4-5.0); Albumin/Globulin Ratio 0.5 (0.8-1.8); Bilirubin, Total 0.5 mg/dL (0.1-1.0); Bun/Creatinine Ratio 17.4 (12.0-20.0); Calcium, Blood 9.3 mg/dL (8.5-10.1); Creatinine, Blood 0.86 mg/dL (0.60-1.20); Globulin, Blood 4.2 g/dL (2.2-4.0); Potassium, Blood 4.4 mmol/L (3.5-5.5); Total Protein, Blood 6.4 g/dL (6.4-8.2)
[2024-03-21 19:30] LABS: Source, Urine Clean Catch
[2024-03-21 19:34] LABS: Appearance, Urine Clear (Clear); Bilirubin, Urine Neg (Neg); Blood, Urine 2+ (Neg); Color, Urine Yellow (P-Yellow); Glucose Qualitative, Urine 2+ (Neg); Ketones, Urine Neg (Neg); Leukocyte Esterase, Urine Neg (Neg); Nitrite, Urine Neg (Neg); Protein, Urine 3+ (Neg); Specific Gravity, Urine 1.015 (1.003-1.022); Urobilinogen, Urine 1+ (Normal)
[2024-03-21 19:41] LABS: Bacteria Rare /hpf; Hyaline Casts 0-2 /lpf (0-2); Red Blood Cells, Urine 0-2 /hpf (0-2); Squamous Epithelial Cells Few /hpf (Few); White Blood Cells, Urine 0-2 /hpf (0-5)
[2024-03-21 20:00] VITALS: BP 139/83
== END 2024-03-21 20:00 | disposition home or self-care (01) ==
LOC: ER 18:00
PROVIDERS: Emergency Medicine
DX: M54.50 Low back pain, unspecified (principal); G89.29 Other chronic pain; E11.40 Type 2 diabetes mellitus with diabetic neuropathy, unspecified; E11.621 Type 2 diabetes mellitus with foot ulcer; I10 Essential (primary) hypertension; F17.210 Nicotine dependence, cigarettes, uncomplicated; Z79.82 Long term (current) use of aspirin; Z79.4 Long term (current) use of insulin; Z79.899 Other long term (current) drug therapy
CPT/HCPCS: 71045; 80053; 81001; 83605; 85025; 96374; 99284-25; J1171

== ENCOUNTER 2024-06-11 09:46 | Day surgery (SDC) | payer OTHER ==
[2024-06-11] VITALS (10 sets, daily range): BP systolic 155–182; BP diastolic 89–105
[~2024-06-11] VITALS: Ht 190.5 cm; Wt 115.6 kg
--- NOTE | 2024-06-11 09:45 | NUR ---
PT RETURNED TO RECOVERY ROOM IN BED. RIGHT FEMORAL GROIN SITE SOFT NON-TENDER WITH NO HEMATOMA, NO PULSATILE BLEEDING, SLIGHT TRACK OOZING WITH INTACT DRESSING. CALL LIGHT IN REACH.
[~2024-06-11 09:46] MED LIST changes: +Heparin Sodium 1000 Units/ML 10ML MDV ONE; +Lactated Ringer's 1,000 ML IV ONE; +NS 1,000 ML IV ONE; +NS 500 ML IV ONE; +Nitroglycerin 2 MG/20 ML BTL ONE; +TOUJEO MAX300 UNIT/2
--- NOTE | 2024-06-11 09:53 | NUR ---
NO CHANGES TO R FEM GROIN SITE. PT ARRIVED TODAY WITH A DRESSING ON RIGHT FOOT WHICH IS STILL IN PLACE.
--- NOTE | 2024-06-11 10:23 | NUR ---
HOB UP TO [address] COATS IN ROOM TO SEE PT. NO CHANGES TO R FEM GROIN SITE. CALL LIGHT IN REACH.
--- NOTE | 2024-06-11 10:25 | NUR ---
PT STATED HIS BACK PAIN FROM LAYING FLAT IS IMPROVED WITH SITTING UP.
--- NOTE | 2024-06-11 11:04 | NUR ---
NO CHANGES TO R FEM GROIN SITE. PT EATING BREAKFAST AND DRINKING COFFEE.
--- NOTE | 2024-06-11 11:37 | NUR ---
DISCHARGE INSTRUCTIONS REVIEWED ALL QUESTIONS ANSWERED. NO CHANGES TO R FEM GROIN SITE STILL SOFT NON-TENDER WITH NO HEMATOMA, NO PULSTILE BLEEDING. 20 G IV DISCONTINUED FROM RIGHT AC WITH INTACT CANNULA. PT ESCORTED OUT VIA WHEELCHAIR ESCORT.
[2024-06-11] MEDS ORDERED: Phenylephrine HCl 100 MCG/ML-NS 10MLSYR (1MG/10ML) IV ONE (18:43)
[2024-06-11] MEDS ORDERED: Lidocaine HCl 2% 20 MG/ML 5ML SYR IV ONE (18:43)
[2024-06-11] MEDS ORDERED: Propofol 10mg/ml 20 ml Vial (Procedural) IV ONE (18:43)
== END 2024-06-11 11:53 | disposition home or self-care (01) ==
LOC: MHTC 09:46 → ORSCMMR 09:46 → MHTC 11:53 → ORSCMMR 11:53
DX: I70.222 Atherosclerosis of native arteries of extremities with rest pain, left leg (principal); L97.429 Non-pressure chronic ulcer of left heel and midfoot with unspecified severity; I10 Essential (primary) hypertension; E11.51 Type 2 diabetes mellitus with diabetic peripheral angiopathy without gangrene; E78.5 Hyperlipidemia, unspecified; F17.210 Nicotine dependence, cigarettes, uncomplicated; Z86.73 Personal history of transient ischemic attack (TIA), and cerebral infarction without residual deficits; Z89.511 Acquired absence of right leg below knee; Z79.899 Other long term (current) drug therapy; Z79.82 Long term (current) use of aspirin; Z79.85 Long-term (current) use of injectable non-insulin antidiabetic drugs; Z79.84 Long term (current) use of oral hypoglycemic drugs; Z79.4 Long term (current) use of insulin
CPT/HCPCS: 75625; 75716; 75774; 76937; 82947; C1725; C1760; C1769; C1887; C1894; C9772; J1644; J2003; J2371; J2704; J7030; J7050; J7120; Q9967

== ENCOUNTER → 2025-03-22 | Outpatient (CLI) | payer OTHER ==
[~2025-03-22] MED LIST changes: -Heparin Sodium 1000 Units/ML 10ML MDV ONE; -Lactated Ringer's 1,000 ML IV ONE; -NS 1,000 ML IV ONE; -NS 500 ML IV ONE; -Nitroglycerin 2 MG/20 ML BTL ONE
[2025-03-22 18:32] LABS: BASOPHILS ABSOLUTE AUTO 0.06 K/mm3 (0.00-0.23); BASOPHILS PERCENT AUTO 1 % (0-2); EOSINOPHILS ABSOLUTE AUTO 0.23 K/mm3 (0.00-0.68); EOSINOPHILS PERCENT AUTO 3 % (0-6); Hematocrit 37.0 % (37.0-53.0); Hemoglobin 11.7 g/dL (13.5-17.5); IMMATURE GRAN ABSOLUTE AUTO 0.02 K/mm3 (0.00-0.10); IMMATURE GRAN PERCENT AUTO 0 % (0-1); LYMPHOCYTES ABSOLUTE AUTO 1.92 K/mm3 (0.84-5.20); LYMPHOCYTES PERCENT AUTO 28 % (21-46); MONOCYTES ABSOLUTE AUTO 0.64 K/mm3 (0.16-1.47); MONOCYTES PERCENT AUTO 9 % (4-13); Mean Corpuscular HGB Conc 31.6 g/dL (31.5-36.5); Mean Corpuscular Volume 91 fL (80-100); NEUTROPHILS ABSOLUTE AUTO 4.07 K/mm3 (1.96-9.15); NEUTROPHILS PERCENT AUTO 59 % (41-73); NRBC ABSOLUTE 0.00 K/mm3 (0.00-0.02); NRBC Auto 0.0 /100 WBC (0.0-0.2); Platelet Count 266 K/mm3 (150-400); RDW Coefficient Variation 14.4 % (11.7-14.2); RDW Standard Deviation 47.8 fL (35.1-46.3)
[2025-03-22 18:58] LABS: Alanine Aminotransfer (ALT/SGP 20.0 U/L (12-78); Albumin, Blood 3.2 g/dL (3.4-5.0); Albumin/Globulin Ratio 0.9 (0.8-1.8); Anion Gap 7.0 mmol/L (3-11); Aspartate Aminotrans (AST/SGOT 12.0 U/L (12-37); Bilirubin, Total 0.3 mg/dL (0.1-1.0); Blood Urea Nitrogen 18.0 mg/dL (8-24); CO2, Blood 28.0 mmol/L (21-32); Calcium, Blood 9.4 mg/dL (8.5-10.1); Chloride, Blood 108.0 mmol/L (98-108); Creatinine, Blood 0.82 mg/dL (0.60-1.20); Ferritin, Serum 46.0 ng/mL (26-388); Globulin, Blood 3.5 g/dL (2.2-4.0); Glucose, Blood 182.0 mg/dL (70-99); Potassium, Blood 4.2 mmol/L (3.5-5.5); Sodium, Blood 139.0 mmol/L (136-145); Total Iron Binding Capacity 250.0 ug/dL (250-450); Total Protein, Blood 6.7 g/dL (6.4-8.2)
== END ==
LOC: LAB SHORT 16:19 → LAB 16:19
PROVIDERS: Nurse Practitioner Family
DX: I10 Essential (primary) hypertension (principal); E61.1 Iron deficiency
CPT/HCPCS: 80053; 82728; 83540; 83550; 85025